=== PATIENT | female | born 1940 | race Caucasian/White ===

== ENCOUNTER 2016-03-23 09:34 | Outpatient (CLI) | payer MEDICARE | END 2016-03-23 09:35 | disposition home or self-care (01) | LOC: LAB.N 09:34 | PROVIDERS: ATTEND Internal Medicine Cardiovascular Disease | DX: Z95.2 Presence of prosthetic heart valve (principal); Z79.01 Long term (current) use of anticoagulants | CPT/HCPCS: 85610 ==

== ENCOUNTER 2016-04-18 10:02 | Outpatient (CLI) | payer MEDICARE | END 2016-04-18 10:03 | disposition home or self-care (01) | DX: Z95.2 Presence of prosthetic heart valve (principal); Z79.01 Long term (current) use of anticoagulants ==

== ENCOUNTER 2016-05-16 09:46 | Outpatient (CLI) | payer MEDICARE | END 2016-05-16 09:47 | disposition home or self-care (01) | DX: Z79.01 Long term (current) use of anticoagulants (principal); Z95.2 Presence of prosthetic heart valve ==

== ENCOUNTER 2016-07-06 10:47 | Outpatient (CLI) | payer MEDICARE | END 2016-07-06 10:48 | disposition home or self-care (01) | DX: Z95.2 Presence of prosthetic heart valve (principal); Z79.01 Long term (current) use of anticoagulants ==

== ENCOUNTER 2016-08-21 08:00 | Outpatient (CLI) | payer MEDICARE | END 2016-08-21 08:01 | disposition home or self-care (01) | LOC: LAB.N 08:00 | PROVIDERS: ATTEND Internal Medicine Cardiovascular Disease | DX: Z95.2 Presence of prosthetic heart valve (principal); Z79.01 Long term (current) use of anticoagulants | CPT/HCPCS: 85610 ==

== ENCOUNTER 2016-08-24 09:30 | Outpatient (CLI) | payer MEDICARE ==
[2016-08-24 13:14] LABS: CHOL/HDL RATIO 3.2 (<4.4); CHOLESTEROL 193 mg/dL; HDL CHOLESTEROL 61 mg/dL; LDL/HDL RATIO 1.9 (<4.4); TRIGLYCERIDES 76 mg/dL; VLDL CHOLESTEROL 15 mg/dL
== END 2016-08-24 09:31 | disposition home or self-care (01) ==
LOC: LAB.N 09:30
PROVIDERS: ATTEND Internal Medicine Cardiovascular Disease
DX: E78.4 Other hyperlipidemia (principal); I10 Essential (primary) hypertension; Z79.01 Long term (current) use of anticoagulants
CPT/HCPCS: 36415; 80061

== ENCOUNTER 2016-09-21 08:00 | Outpatient (CLI) | payer MEDICARE | END 2016-09-21 08:01 | disposition home or self-care (01) | LOC: LAB.N 08:00 | PROVIDERS: ATTEND Internal Medicine Cardiovascular Disease | DX: Z95.2 Presence of prosthetic heart valve (principal); Z79.01 Long term (current) use of anticoagulants | CPT/HCPCS: 85610 ==

== ENCOUNTER 2016-11-06 10:57 | Outpatient (CLI) | payer MEDICARE | END 2016-11-06 10:58 | disposition home or self-care (01) | LOC: LAB.N 10:57 | PROVIDERS: ATTEND Internal Medicine Cardiovascular Disease | DX: Z95.2 Presence of prosthetic heart valve (principal); Z79.01 Long term (current) use of anticoagulants | CPT/HCPCS: 85610 ==

== ENCOUNTER 2016-11-12 08:00 | Outpatient (CLI) | payer MEDICARE ==
[2016-11-12 14:08] LABS: CHOLESTEROL 199 mg/dL; HDL CHOLESTEROL 66 mg/dL; LDL/HDL RATIO 1.8 (<4.4); TRIGLYCERIDES 72 mg/dL; VLDL CHOLESTEROL 14 mg/dL
== END 2016-11-12 08:01 | disposition home or self-care (01) ==
LOC: LAB.N 08:00
PROVIDERS: ATTEND Internal Medicine Cardiovascular Disease
DX: I25.10 Atherosclerotic heart disease of native coronary artery without angina pectoris (principal); J90 Pleural effusion, not elsewhere classified; R06.02 Shortness of breath; I50.30 Unspecified diastolic (congestive) heart failure; Z95.2 Presence of prosthetic heart valve; J43.2 Centrilobular emphysema; Z79.01 Long term (current) use of anticoagulants
CPT/HCPCS: 36415; 80061

== ENCOUNTER 2016-11-26 09:45 | Outpatient (CLI) | payer MEDICARE | END 2016-11-26 09:46 | disposition home or self-care (01) | LOC: LAB.N 09:45 | PROVIDERS: ATTEND Ophthalmology | DX: Z79.01 Long term (current) use of anticoagulants (principal) | CPT/HCPCS: 85610 ==

== ENCOUNTER 2016-12-04 12:44 | Outpatient (CLI) | payer MEDICARE ==
[2016-12-04 12:59] LABS: CALCIUM 9.3 mg/dL (8.5-10.3); CREATININE 0.7 mg/dL (0.4-1.0)
== END 2016-12-04 12:45 | disposition home or self-care (01) ==
LOC: LAB.N 12:44
PROVIDERS: ATTEND Internal Medicine Cardiovascular Disease
DX: I50.30 Unspecified diastolic (congestive) heart failure (principal); Z95.2 Presence of prosthetic heart valve; J43.2 Centrilobular emphysema; R06.02 Shortness of breath
CPT/HCPCS: 36415; 80048

== ENCOUNTER 2016-12-10 08:00 | Outpatient (CLI) | payer MEDICARE | END 2016-12-10 08:01 | disposition home or self-care (01) | LOC: LAB.N 08:00 | PROVIDERS: ATTEND Internal Medicine Cardiovascular Disease | DX: Z95.2 Presence of prosthetic heart valve (principal); Z79.01 Long term (current) use of anticoagulants | CPT/HCPCS: 85610 ==

== ENCOUNTER 2016-12-27 14:49 | Outpatient (CLI) | payer MEDICARE ==
[2016-12-27 13:07] LABS: HGB - HEMOGLOBIN 12.7 g/dL (12.0-16.0); MEAN CORPUSCULAR HEMOGLOBIN 30.3 pg (27.0-31.0); MEAN CORPUSCULAR HGB CONC 34.3 g/dL (32.0-36.0); MEAN CORPUSCULAR VOLUME 88.6 fL (81.0-99.0); MEAN PLATELET VOLUME 8.9 fL (7.9-10.8); RED BLOOD COUNT 4.17 10^6/uL (4.20-5.40); RED CELL DISTRIBUTION WIDTH 13.2 % (12.0-15.0); WHITE BLOOD COUNT 5.6 x10^3/uL (4.8-10.8)
[2016-12-27 13:31] LABS: ALBUMIN/GLOBULIN RATIO 1.4 (1.0-2.2); BILIRUBIN,TOTAL 0.9 mg/dL (0.2-1.0); CALCIUM 8.6 mg/dL (8.5-10.3); CREATININE 0.7 mg/dL (0.4-1.0); POTASSIUM 3.7 mmol/L (3.5-5.0); TOTAL PROTEIN 6.9 g/dL (6.7-8.2)
== END 2016-12-27 14:50 | disposition home or self-care (01) ==
LOC: LAB.N 14:49
PROVIDERS: ATTEND Internal Medicine
DX: E03.9 Hypothyroidism, unspecified (principal); I10 Essential (primary) hypertension; C91.10 Chronic lymphocytic leukemia of B-cell type not having achieved remission; Z79.899 Other long term (current) drug therapy
CPT/HCPCS: 36415; 80053; 84443

== ENCOUNTER 2017-01-29 15:07 | Outpatient (CLI) | payer MEDICARE | END 2017-01-29 15:08 | disposition home or self-care (01) | LOC: LAB.N 15:07 | PROVIDERS: ATTEND Internal Medicine Cardiovascular Disease | DX: Z95.2 Presence of prosthetic heart valve (principal); Z79.01 Long term (current) use of anticoagulants | CPT/HCPCS: 85610 ==

== ENCOUNTER 2017-03-13 08:00 | Outpatient (CLI) | payer MEDICARE ==
[2017-03-13 12:23] LABS: HGB - HEMOGLOBIN 12.8 g/dL (12.0-16.0); MEAN CORPUSCULAR HEMOGLOBIN 30.8 pg (27.0-31.0); MEAN CORPUSCULAR HGB CONC 35.1 g/dL (32.0-36.0); MEAN CORPUSCULAR VOLUME 87.7 fL (81.0-99.0); MEAN PLATELET VOLUME 8.9 fL (7.9-10.8); RED BLOOD COUNT 4.15 10^6/uL (4.20-5.40); RED CELL DISTRIBUTION WIDTH 13.2 % (12.0-15.0); WHITE BLOOD COUNT 5.4 x10^3/uL (4.8-10.8)
[2017-03-13 12:49] LABS: HB2 TOTAL 13.6 g/dL; HEMOGLOBIN A1C 0.44 g/dL; HEMOGLOBIN A1C % 5.1 % (4.6-6.2)
[2017-03-13 12:52] LABS: ALBUMIN 4.1 g/dL (3.2-5.5); ALBUMIN/GLOBULIN RATIO 1.4 (1.0-2.2); ALKALINE PHOSPHATASE 78 IU/L (42-121); ALT ALANINE AMINOTRANSFERASE 42 IU/L (10-60); AST ASPARTATE AMINOTRANSFERASE 53 IU/L (10-42); BILIRUBIN,TOTAL 0.8 mg/dL (0.2-1.0); BUN - BLOOD UREA NITROGEN 18 mg/dL (6-20); CARBON DIOXIDE - CO2 30 mmol/L (21-32); CHLORIDE 102 mmol/L (101-111); CHOL/HDL RATIO 2.9 (<4.4); CHOLESTEROL 192 mg/dL; CREATININE 0.7 mg/dL (0.4-1.0); GFR - MDRD 82 (>89); GLUCOSE 90 mg/dL (70-100); HDL CHOLESTEROL 66 mg/dL; LDL CHOLESTEROL,CALCULATED 114 mg/dL; LDL/HDL RATIO 1.7 (<4.4); SODIUM 135 mmol/L (135-145); TOTAL PROTEIN 7.1 g/dL (6.7-8.2); VLDL CHOLESTEROL 12 mg/dL
== END 2017-03-13 08:01 | disposition home or self-care (01) ==
LOC: LAB.N 08:00
PROVIDERS: ATTEND Internal Medicine
DX: E78.4 Other hyperlipidemia (principal); E16.2 Hypoglycemia, unspecified; I10 Essential (primary) hypertension; Z95.2 Presence of prosthetic heart valve; Z79.01 Long term (current) use of anticoagulants; Z79.899 Other long term (current) drug therapy
CPT/HCPCS: 36415; 80053; 80061; 83036; 85610

== ENCOUNTER 2017-04-08 09:07 | Outpatient (CLI) | payer MEDICARE ==
--- NOTE | 2017-04-09 17:45 | Mammography Report ---
DATE OF SERVICE: 04/08/2017 DIGITAL SCREENING MAMMOGRAM: 04/08/2017 CLINICAL INDICATION: A 76-year-old nulliparous patient with personal history of left breast cancer, status post lumpectomy and radiation therapy, family history of breast cancer for screening. COMPARISON: 10/2015, 08/2014, 06/2012, 03/2011, 03/2010, 02/2009, 08/2007. TECHNIQUE: Routine CC and MLO projections as well as bilateral laterally exaggerated craniocaudal views were obtained of the breasts. FINDINGS: The breasts again demonstrate heterogeneously dense fibroglandular parenchyma bilaterally. Postoperative and posttreatment changes in the left breast are stable. Architectural distortion in the right outer breast is unchanged back to 2007. Coarse and punctate, typically benign calcifications are present. No suspicious masses, clustered microcalcifications, or regions of architectural distortion are identified. IMPRESSION: BENIGN FINDINGS. RECOMMENDATIONS: Routine annual screening unless otherwise clinically indicated. BIRADS category 2 benign findings breasts. STANDARD QUALIFYING STATEMENTS 1. This examination was reviewed with the aid of Computed-Aided Detection (CAD). 2. A negative or benign imaging report should not delay biopsy if clinically suspicious findings are present. Consider surgical consultation if warranted. More than 5% of cancers are not identified by imaging. 3. Dense breasts may obscure an underlying neoplasm. TD: 04/09/2017 17:45
== END 2017-04-08 09:08 | disposition home or self-care (01) ==
LOC: DI 09:07
PROVIDERS: ATTEND Internal Medicine
DX: Z12.31 Encounter for screening mammogram for malignant neoplasm of breast (principal); Z85.3 Personal history of malignant neoplasm of breast; Z80.3 Family history of malignant neoplasm of breast
CPT/HCPCS: 77067

== ENCOUNTER 2017-04-30 09:58 | Outpatient (CLI) | payer MEDICARE ==
[2017-04-30 13:41] LABS: CALCIUM 9.2 mg/dL (8.5-10.3); CREATININE 0.7 mg/dL (0.4-1.0)
== END 2017-04-30 09:59 | disposition home or self-care (01) ==
LOC: LAB.N 09:58
PROVIDERS: ATTEND Internal Medicine Cardiovascular Disease
DX: I50.30 Unspecified diastolic (congestive) heart failure (principal); Z95.2 Presence of prosthetic heart valve; Z79.01 Long term (current) use of anticoagulants
CPT/HCPCS: 36415; 80048; 85610

== ENCOUNTER 2017-05-22 09:38 | Outpatient (CLI) | payer MEDICARE | END 2017-05-22 09:39 | disposition home or self-care (01) | LOC: LAB.N 09:38 | PROVIDERS: ATTEND Internal Medicine Cardiovascular Disease | DX: Z95.2 Presence of prosthetic heart valve (principal); Z79.01 Long term (current) use of anticoagulants | CPT/HCPCS: 85610 ==

== ENCOUNTER 2017-06-14 08:00 | Outpatient (CLI) | payer MEDICARE ==
[2017-06-14 19:08] LABS: INR 2.2 (0.8-1.2); PT - PROTHROMBIN TIME 24.5 secs (9.9-12.6)
== END 2017-06-14 08:01 | disposition home or self-care (01) ==
LOC: LAB.N 08:00
PROVIDERS: ATTEND Internal Medicine Cardiovascular Disease
DX: I34.2 Nonrheumatic mitral (valve) stenosis (principal); I34.0 Nonrheumatic mitral (valve) insufficiency; Z95.2 Presence of prosthetic heart valve
CPT/HCPCS: 36415; 85610

== ENCOUNTER 2017-06-19 08:00 | Outpatient (CLI) | payer MEDICARE | END 2017-06-19 08:01 | disposition home or self-care (01) | LOC: LAB.N 08:00 | PROVIDERS: ATTEND Internal Medicine Cardiovascular Disease | DX: Z95.2 Presence of prosthetic heart valve (principal) | CPT/HCPCS: 85610 ==

== ENCOUNTER 2017-07-11 10:02 | Outpatient (CLI) | payer MEDICARE | END 2017-07-11 10:03 | disposition home or self-care (01) | LOC: LAB.N 10:02 | PROVIDERS: ATTEND Internal Medicine Cardiovascular Disease | DX: Z95.2 Presence of prosthetic heart valve (principal) | CPT/HCPCS: 85610 ==

== ENCOUNTER 2017-08-23 08:00 | Outpatient (CLI) | END 2017-08-23 08:01 | disposition home or self-care (01) ==

== ENCOUNTER 2017-10-14 09:26 | Outpatient (CLI) | payer MEDICARE | END 2017-10-14 09:27 | disposition home or self-care (01) | LOC: LAB.N 09:26 | PROVIDERS: ATTEND Internal Medicine Cardiovascular Disease | DX: Z95.2 Presence of prosthetic heart valve (principal) | CPT/HCPCS: 85610 ==

== ENCOUNTER 2017-11-14 08:00 | Outpatient (CLI) | payer MEDICARE | END 2017-11-14 23:59 | LOC: LAB.N 08:00 | PROVIDERS: ATTEND Internal Medicine Cardiovascular Disease | DX: Z95.2 Presence of prosthetic heart valve (principal) | CPT/HCPCS: 85610 ==

== ENCOUNTER 2017-11-25 09:32 | Outpatient (CLI) | payer MEDICARE ==
[2017-11-25 14:48] LABS: CALCIUM 9.3 mg/dL (8.5-10.3); CREATININE 0.7 mg/dL (0.4-1.0); MAGNESIUM 2.1 mg/dL (1.7-2.8)
== END 2017-11-25 09:33 | disposition home or self-care (01) ==
LOC: LAB.N 09:32
PROVIDERS: ATTEND Internal Medicine
DX: E78.4 Other hyperlipidemia (principal); E16.2 Hypoglycemia, unspecified; E03.9 Hypothyroidism, unspecified; Z79.899 Other long term (current) drug therapy
CPT/HCPCS: 36415; 80048; 83735

== ENCOUNTER 2017-12-10 10:12 | Outpatient (CLI) | payer MEDICARE | END 2017-12-10 10:13 | disposition home or self-care (01) | LOC: LAB.N 10:12 | PROVIDERS: ATTEND Internal Medicine Cardiovascular Disease | DX: Z95.2 Presence of prosthetic heart valve (principal) | CPT/HCPCS: 85610 ==

== ENCOUNTER 2017-12-23 12:17 | Outpatient (CLI) | payer MEDICARE ==
[2017-12-23 15:05] LABS: ALBUMIN 4.2 g/dL (3.2-5.5); ALBUMIN/GLOBULIN RATIO 1.4 (1.0-2.2); ALKALINE PHOSPHATASE 70 IU/L (42-121); ALT ALANINE AMINOTRANSFERASE 26 IU/L (10-60); AST ASPARTATE AMINOTRANSFERASE 33 IU/L (10-42); BUN - BLOOD UREA NITROGEN 20 mg/dL (6-20); CALCIUM 9.3 mg/dL (8.5-10.3); CARBON DIOXIDE - CO2 32 mmol/L (21-32); CHLORIDE 96 mmol/L (101-111); CHOL/HDL RATIO 2.7 (<4.4); CHOLESTEROL 196 mg/dL; CREATININE 0.7 mg/dL (0.4-1.0); GFR - MDRD 81 (>89); GLUCOSE 89 mg/dL (70-100); HDL CHOLESTEROL 72 mg/dL; LDL CHOLESTEROL,CALCULATED 112 mg/dL; LDL/HDL RATIO 1.6 (<4.4); SODIUM 138 mmol/L (135-145); TOTAL PROTEIN 7.2 g/dL (6.7-8.2); VLDL CHOLESTEROL 12 mg/dL
== END 2017-12-23 12:18 | disposition home or self-care (01) ==
LOC: LAB.N 12:17
PROVIDERS: ATTEND Internal Medicine
DX: I10 Essential (primary) hypertension (principal); E78.5 Hyperlipidemia, unspecified
CPT/HCPCS: 36415; 80053; 80061; 83721

== ENCOUNTER 2018-02-07 08:00 | Outpatient (CLI) | payer MEDICARE | END 2018-02-07 23:59 | LOC: LAB.N 08:00 | PROVIDERS: ATTEND Internal Medicine Cardiovascular Disease | DX: Z95.2 Presence of prosthetic heart valve (principal) | CPT/HCPCS: 85610 ==

== ENCOUNTER 2018-02-10 10:28 | Outpatient (CLI) | payer MEDICARE ==
[2018-02-10 13:41] LABS: ALBUMIN 4.1 g/dL (3.2-5.5); ALBUMIN/GLOBULIN RATIO 1.4 (1.0-2.2); CALCIUM 9.2 mg/dL (8.5-10.3); CREATININE 0.8 mg/dL (0.4-1.0); TOTAL PROTEIN 7.1 g/dL (6.7-8.2)
== END 2018-02-10 23:59 | disposition home or self-care (01) ==
LOC: LAB.N 10:28
PROVIDERS: ATTEND Internal Medicine Cardiovascular Disease
DX: I27.81 Cor pulmonale (chronic) (principal)
CPT/HCPCS: 36415; 80053

== ENCOUNTER 2018-03-03 10:20 | Outpatient (CLI) | payer MEDICARE ==
[2018-03-03 13:43] LABS: CREATININE 0.9 mg/dL (0.4-1.0)
== END 2018-03-03 10:21 | disposition home or self-care (01) ==
LOC: LAB.N 10:20
PROVIDERS: ATTEND Internal Medicine Cardiovascular Disease
DX: I50.32 Chronic diastolic (congestive) heart failure (principal)
CPT/HCPCS: 36415; 80048

== ENCOUNTER 2018-03-17 09:48 | Outpatient (CLI) | payer MEDICARE | END 2018-03-17 23:59 | disposition home or self-care (01) | LOC: LAB.N 09:48 | PROVIDERS: ATTEND Internal Medicine Cardiovascular Disease | DX: Z95.2 Presence of prosthetic heart valve (principal) | CPT/HCPCS: 85610 ==

== ENCOUNTER 2018-04-02 09:38 | Outpatient (CLI) | payer MEDICARE ==
[2018-04-02 13:04] LABS: BASOPHILS # (AUTO) 0.1 10^3/uL (0.0-0.1); BASOPHILS % (AUTO) 1.4 %; EOSINOPHILS # (AUTO) 0.1 10^3/uL (0.0-0.7); EOSINOPHILS % (AUTO) 2.3 %; HGB - HEMOGLOBIN 13.1 g/dL (12.0-16.0); LYMPHOCYTES # (AUTO) 0.7 10^3/uL (1.5-3.5); LYMPHOCYTES % (AUTO) 11.1 %; MEAN CORPUSCULAR HEMOGLOBIN 31.6 pg (27.0-31.0); MEAN CORPUSCULAR VOLUME 90.4 fL (81.0-99.0); MEAN PLATELET VOLUME 8.9 fL (7.9-10.8); MONOCYTES # (AUTO) 0.6 10^3/uL (0.0-1.0); MONOCYTES % (AUTO) 8.9 %; NEUTROPHILS # (AUTO) 4.7 10^3/uL (1.5-6.6); NEUTROPHILS % (AUTO) 76.3 %; PLT - PLATELET COUNT 182 10^3/uL (130-450); RED BLOOD COUNT 4.13 10^6/uL (4.20-5.40); RED CELL DISTRIBUTION WIDTH 13.4 % (12.0-15.0); WHITE BLOOD COUNT 6.2 x10^3/uL (4.8-10.8)
[2018-04-02 13:29] LABS: THYROID STIMULATING HORMONE 1.7 uIU/mL (0.34-5.60)
[2018-04-02 13:31] LABS: FREE T4 (FREE THYROXINE) 1.53 ng/dL (0.58-1.64)
[2018-04-02 13:34] LABS: CALCIUM 8.8 mg/dL (8.5-10.3); CREATININE 0.7 mg/dL (0.4-1.0); MAGNESIUM 2.5 mg/dL (1.7-2.8)
[2018-04-02 13:57] LABS: ALBUMIN 3.7 g/dL (3.2-5.5); ALKALINE PHOSPHATASE 75 IU/L (42-121); ALT ALANINE AMINOTRANSFERASE 26 IU/L (10-60); AST ASPARTATE AMINOTRANSFERASE 38 IU/L (10-42); BILIRUBIN,DIRECT 0.2 mg/dL (0.1-0.5); BILIRUBIN,TOTAL 0.9 mg/dL (0.2-1.0); CHOL/HDL RATIO 2.6 (<4.4); CHOLESTEROL 172 mg/dL; HDL CHOLESTEROL 65 mg/dL; LDL CHOLESTEROL,CALCULATED 97 mg/dL; LDL/HDL RATIO 1.5 (<4.4); TOTAL PROTEIN 6.7 g/dL (6.7-8.2); VLDL CHOLESTEROL 10 mg/dL
== END 2018-04-02 23:59 | disposition home or self-care (01) ==
LOC: LAB.N 09:38
PROVIDERS: ATTEND Internal Medicine Cardiovascular Disease
DX: R06.02 Shortness of breath (principal); I27.81 Cor pulmonale (chronic); I10 Essential (primary) hypertension; E78.5 Hyperlipidemia, unspecified; R31.29 Other microscopic hematuria; E03.9 Hypothyroidism, unspecified
CPT/HCPCS: 36415; 80048; 80061; 80076; 81001; 83721; 83735; 83880; 84439; 84443; 85025

== ENCOUNTER 2018-04-11 10:11 | Outpatient (CLI) | payer MEDICARE ==
--- NOTE | 2018-04-14 09:46 | Mammography Report ---
Reason: SCREENING MAMMO Procedure Date: 04/11/2018 Accession Number: [id number] / [id number] Procedure: MGN - Screening Mammo Dig Bilat CPT Code: FULL RESULT: EXAM: Screening Mammo Dig Bilat DATE: 04/11/2018 10:38 AM CLINICAL HISTORY: Nulliparous patient with history of left lumpectomy and radiation therapy and benign right breast biopsy TECHNIQUE: Bilateral CC and MLO views were obtained. COMPARISON: 04/08/2017, 10/10/2015, 08/10/2014 and 06/11/2012 FINDINGS: The breast tissue is heterogeneously dense. Stable posttreatment changes in the left breast. In the right breast there is a questionable nodular density and architectural distortion in the upper outer quadrant which in part may be secondary to the prior benign biopsy. However suggest additional spot compression views of the upper outer right breast and a right true lateral projection. Ultrasound if needed. IMPRESSION: Benign findings left breast. Needs additional evaluation right breast BI-RADS 0. RECOMMENDATION: Additional evaluation right breast.. BIRADS CATEGORY 0: Needs additional evaluation. STANDARD QUALIFYING STATEMENTS: 1. This examination was reviewed with the aid of Computer-Aided Detection (CAD). 2. A negative or benign imaging report should not delay biopsy if clinically suspicious findings are present. Consider surgical consultation if warrented. More than 5% of cancers are not identified by imaging. 3. Dense breasts may obscure an underlying neoplasm.
== END 2018-04-11 10:12 | disposition home or self-care (01) ==
LOC: DI.N 10:11
PROVIDERS: ATTEND Internal Medicine
DX: Z12.31 Encounter for screening mammogram for malignant neoplasm of breast (principal); R92.8 Other abnormal and inconclusive findings on diagnostic imaging of breast
CPT/HCPCS: 77067

== ENCOUNTER 2018-04-28 08:00 | Outpatient (CLI) | payer MEDICARE | END 2018-04-28 08:01 | disposition home or self-care (01) | LOC: LAB.N 08:00 | PROVIDERS: ATTEND Internal Medicine Cardiovascular Disease | DX: Z95.2 Presence of prosthetic heart valve (principal) | CPT/HCPCS: 85610 ==

== ENCOUNTER 2018-05-01 09:54 | Outpatient (CLI) | payer MEDICARE | END 2018-05-01 23:59 | disposition home or self-care (01) | LOC: LAB.N 09:54 | PROVIDERS: ATTEND Internal Medicine Cardiovascular Disease | DX: Z95.2 Presence of prosthetic heart valve (principal) | CPT/HCPCS: 85610 ==

== ENCOUNTER 2018-05-16 09:43 | Outpatient (CLI) | payer MEDICARE ==
--- NOTE | 2018-05-16 10:58 | Mammography Report ---
Reason: ABN MAMMO - RT SPEC VIEWS Procedure Date: 05/16/2018 Accession Number: [id number] / [id number] Procedure: LUCAS - Diag Special Views Dig RT CPT Code: FULL RESULT: EXAM: Diag Special Views Dig RT DATE: 05/16/2018 10:44 AM CLINICAL HISTORY: Recall from recent screening exam for possible asymmetry upper outer right breast. Personal history of treated left breast cancer status post lumpectomy. TECHNIQUE: Right spot compressed CC MLO. Right 90 degree 2-D/3-D COMPARISON: 04/11/2018 through 06/11/2012. FINDINGS: The breast demonstrates heterogeneously dense fibroglandular parenchyma . Right breast: There are stable operative changes status post benign excisional biopsy from the upper outer breast. Area of concern recalled from recent screening exam in the adjacent parenchyma does not persist on additional views, consistent with summation of normal tissues. Area has returned to its baseline appearance compared to studies dating back to 2012. There are no suspicious masses, calcifications or areas of nonoperative distortion. IMPRESSION: Benign findings RECOMMENDATION: Routine annual screening unless otherwise clinically indicated. BI-RADS CATEGORY 2: Benign findings STANDARD QUALIFYING STATEMENTS: 1. This examination was not reviewed with the aid of Computer-Aided Detection (CAD). 2. A negative or benign imaging report should not preclude biopsy if clinically suspicious findings are present. 3. Dense breasts may obscure an underlying neoplasm. 4. This examination was reviewed with the aid of 3D breast imaging (tomosynthesis).
== END 2018-05-16 09:44 | disposition home or self-care (01) ==
LOC: DI 09:43
PROVIDERS: ATTEND Internal Medicine
DX: R92.8 Other abnormal and inconclusive findings on diagnostic imaging of breast (principal)

== ENCOUNTER 2018-05-21 08:00 | Outpatient (CLI) | payer MEDICARE ==
[2018-05-21 13:05] LABS: CALCIUM 9.4 mg/dL (8.5-10.3); CREATININE 0.9 mg/dL (0.4-1.0)
== END 2018-05-21 23:59 | disposition home or self-care (01) ==
LOC: LAB.N 08:00
PROVIDERS: ATTEND Internal Medicine Cardiovascular Disease
DX: I27.81 Cor pulmonale (chronic) (principal)
CPT/HCPCS: 36415; 80048

== ENCOUNTER 2018-06-19 08:00 | Outpatient (CLI) | payer MEDICARE | END 2018-06-19 23:59 | disposition home or self-care (01) | LOC: LAB.N 08:00 | PROVIDERS: ATTEND Internal Medicine Cardiovascular Disease | DX: Z95.2 Presence of prosthetic heart valve (principal) | CPT/HCPCS: 85610 ==

== ENCOUNTER 2018-07-14 08:00 | Outpatient (CLI) | payer MEDICARE ==
[2018-07-14 18:46] LABS: CALCIUM 8.9 mg/dL (8.5-10.3); CREATININE 0.8 mg/dL (0.4-1.0)
[2018-07-14 19:31] LABS: BASOPHILS # (AUTO) 0.1 10^3/uL (0.0-0.1); EOSINOPHILS % (AUTO) 0.7 %; HGB - HEMOGLOBIN 12.1 g/dL (12.0-16.0); LYMPHOCYTES # (AUTO) 0.8 10^3/uL (1.5-3.5); LYMPHOCYTES % (AUTO) 14.2 %; MEAN CORPUSCULAR HEMOGLOBIN 28.4 pg (27.0-31.0); MEAN CORPUSCULAR HGB CONC 32.4 g/dL (32.0-36.0); MEAN CORPUSCULAR VOLUME 87.6 fL (81.0-99.0); MEAN PLATELET VOLUME 8.8 fL (7.9-10.8); MONOCYTES # (AUTO) 0.7 10^3/uL (0.0-1.0); MONOCYTES % (AUTO) 12.7 %; NEUTROPHILS # (AUTO) 4.1 10^3/uL (1.5-6.6); NEUTROPHILS % (AUTO) 71.4 %; PLT - PLATELET COUNT 190 10^3/uL (130-450); RED BLOOD COUNT 4.24 10^6/uL (4.20-5.40); RED CELL DISTRIBUTION WIDTH 13.7 % (12.0-15.0); WHITE BLOOD COUNT 5.8 x10^3/uL (4.8-10.8)
== END 2018-07-14 23:59 | disposition home or self-care (01) ==
LOC: LAB.N 08:00
PROVIDERS: ATTEND Internal Medicine
DX: E11.9 Type 2 diabetes mellitus without complications (principal); D50.9 Iron deficiency anemia, unspecified; N28.9 Disorder of kidney and ureter, unspecified; I10 Essential (primary) hypertension; Z79.899 Other long term (current) drug therapy
CPT/HCPCS: 36415; 80048; 85025

== ENCOUNTER 2018-07-24 09:55 | Outpatient (CLI) | payer MEDICARE ==
[2018-07-24 13:44] LABS: BASOPHILS # (AUTO) 0.1 10^3/uL (0.0-0.1); BASOPHILS % (AUTO) 1.8 %; EOSINOPHILS % (AUTO) 0.4 %; HGB - HEMOGLOBIN 11.8 g/dL (12.0-16.0); LYMPHOCYTES # (AUTO) 0.5 10^3/uL (1.5-3.5); LYMPHOCYTES % (AUTO) 10.8 %; MEAN CORPUSCULAR HEMOGLOBIN 28.3 pg (27.0-31.0); MEAN CORPUSCULAR HGB CONC 33.3 g/dL (32.0-36.0); MEAN CORPUSCULAR VOLUME 84.9 fL (81.0-99.0); MEAN PLATELET VOLUME 8.9 fL (7.9-10.8); MONOCYTES # (AUTO) 0.8 10^3/uL (0.0-1.0); MONOCYTES % (AUTO) 17.1 %; NEUTROPHILS # (AUTO) 3.4 10^3/uL (1.5-6.6); NEUTROPHILS % (AUTO) 69.9 %; PLT - PLATELET COUNT 169 10^3/uL (130-450); RED BLOOD COUNT 4.17 10^6/uL (4.20-5.40); WHITE BLOOD COUNT 4.8 x10^3/uL (4.8-10.8)
[2018-07-24 13:57] LABS: CALCIUM 8.6 mg/dL (8.5-10.3); CREATININE 0.8 mg/dL (0.4-1.0); MAGNESIUM 2.2 mg/dL (1.7-2.8)
== END 2018-07-24 23:59 | disposition home or self-care (01) ==
LOC: LAB.N 09:55
PROVIDERS: ATTEND Internal Medicine Cardiovascular Disease
DX: I35.0 Nonrheumatic aortic (valve) stenosis (principal); J44.9 Chronic obstructive pulmonary disease, unspecified; C91.10 Chronic lymphocytic leukemia of B-cell type not having achieved remission; E78.5 Hyperlipidemia, unspecified; E03.9 Hypothyroidism, unspecified; Z79.899 Other long term (current) drug therapy; Z95.2 Presence of prosthetic heart valve
CPT/HCPCS: 36415; 80048; 83735; 84443; 85025; 85610

== ENCOUNTER 2018-08-01 08:00 | Outpatient (CLI) | payer MEDICARE ==
[2018-08-01 12:49] LABS: ABSOLUTE RETICS # AUTO 0.064 10^6/uL (0.020-0.110); BASOPHILS # (AUTO) 0.1 10^3/uL (0.0-0.1); BASOPHILS % (AUTO) 1.3 %; EOSINOPHILS # (AUTO) 0.1 10^3/uL (0.0-0.7); EOSINOPHILS % (AUTO) 2.4 %; HGB - HEMOGLOBIN 11.7 g/dL (12.0-16.0); LYMPHOCYTES # (AUTO) 0.7 10^3/uL (1.5-3.5); LYMPHOCYTES % (AUTO) 12.8 %; MEAN CORPUSCULAR HEMOGLOBIN 28.4 pg (27.0-31.0); MEAN CORPUSCULAR HGB CONC 33.3 g/dL (32.0-36.0); MEAN CORPUSCULAR VOLUME 85.1 fL (81.0-99.0); MEAN PLATELET VOLUME 8.4 fL (7.9-10.8); MONOCYTES # (AUTO) 0.7 10^3/uL (0.0-1.0); MONOCYTES % (AUTO) 11.5 %; NEUTROPHILS # (AUTO) 4.2 10^3/uL (1.5-6.6); PLT - PLATELET COUNT 208 10^3/uL (130-450); RED BLOOD COUNT 4.11 10^6/uL (4.20-5.40); RED CELL DISTRIBUTION WIDTH 14.5 % (12.0-15.0); WHITE BLOOD COUNT 5.8 x10^3/uL (4.8-10.8)
[2018-08-01 13:02] LABS: FERRITIN 14.1 ng/mL (11.0-306.8)
[2018-08-01 13:41] LABS: CALCIUM 9.1 mg/dL (8.5-10.3)
[2018-08-01 13:43] LABS: FOLATE > 49.60 ng/mL (5.90 - >24.8)
== END 2018-08-01 23:59 | disposition home or self-care (01) ==
LOC: LAB.N 08:00
PROVIDERS: ATTEND Internal Medicine
DX: D50.9 Iron deficiency anemia, unspecified (principal); C91.10 Chronic lymphocytic leukemia of B-cell type not having achieved remission; C18.9 Malignant neoplasm of colon, unspecified; K30 Functional dyspepsia; I38 Endocarditis, valve unspecified
CPT/HCPCS: 36415; 80048; 82607; 82728; 82746; 83540; 84466; 85025; 85044

== ENCOUNTER 2018-08-22 08:00 | Outpatient (CLI) | payer MEDICARE | END 2018-08-22 23:59 | disposition home or self-care (01) | LOC: LAB.N 08:00 | PROVIDERS: ATTEND Internal Medicine Cardiovascular Disease | DX: Z95.2 Presence of prosthetic heart valve (principal) | CPT/HCPCS: 85610 ==

== ENCOUNTER 2018-08-29 14:27 | Outpatient (CLI) | payer MEDICARE ==
[2018-08-29 13:03] LABS: CALCIUM 8.7 mg/dL (8.5-10.3); CREATININE 1.1 mg/dL (0.4-1.0)
== END 2018-08-29 23:59 | disposition home or self-care (01) ==
LOC: LAB.N 14:27
PROVIDERS: ATTEND Internal Medicine Cardiovascular Disease
DX: E87.1 Hypo-osmolality and hyponatremia (principal)
CPT/HCPCS: 36415; 80048; 83930

== ENCOUNTER 2018-09-26 08:00 | Outpatient (CLI) | payer MEDICARE ==
[2018-09-26 17:37] LABS: CHOL/HDL RATIO 2.6 (<4.4); CHOLESTEROL 143 mg/dL; HDL CHOLESTEROL 54 mg/dL; LDL CHOLESTEROL,CALCULATED 77 mg/dL; LDL/HDL RATIO 1.4 (<4.4); VLDL CHOLESTEROL 12 mg/dL
== END 2018-09-26 23:59 | disposition home or self-care (01) ==
LOC: LAB.N 08:00
PROVIDERS: ATTEND Internal Medicine Cardiovascular Disease
DX: R06.02 Shortness of breath (principal); I34.2 Nonrheumatic mitral (valve) stenosis
CPT/HCPCS: 36415; 80061; 83721; 85610

== ENCOUNTER 2018-10-01 08:00 | Outpatient (CLI) | payer MEDICARE | END 2018-10-01 08:01 | disposition home or self-care (01) | LOC: LAB.N 08:00 | PROVIDERS: ATTEND Internal Medicine Cardiovascular Disease | DX: Z95.2 Presence of prosthetic heart valve (principal) | CPT/HCPCS: 85610 ==

== ENCOUNTER 2018-10-14 11:30 | Outpatient (CLI) | payer MEDICARE | END 2018-10-14 11:31 | disposition home or self-care (01) | LOC: LAB.N 11:30 | PROVIDERS: ATTEND Internal Medicine Cardiovascular Disease | DX: Z95.2 Presence of prosthetic heart valve (principal) | CPT/HCPCS: 85610 ==

== ENCOUNTER 2018-10-28 10:13 | Outpatient (CLI) | payer MEDICARE | END 2018-10-28 23:59 | disposition home or self-care (01) | LOC: LAB.N 10:13 | PROVIDERS: ATTEND Internal Medicine Cardiovascular Disease | DX: Z95.2 Presence of prosthetic heart valve (principal) | CPT/HCPCS: 85610 ==

== ENCOUNTER 2018-12-05 08:00 | Outpatient (CLI) | payer MEDICARE | END 2018-12-05 23:59 | disposition home or self-care (01) | LOC: LAB.N 08:00 | PROVIDERS: ATTEND Internal Medicine Cardiovascular Disease | DX: Z95.2 Presence of prosthetic heart valve (principal) | CPT/HCPCS: 85610 ==

== ENCOUNTER 2019-02-02 10:23 | Outpatient (CLI) | payer MEDICARE | END 2019-02-02 23:59 | disposition home or self-care (01) | LOC: LAB.N 10:23 | PROVIDERS: ATTEND Internal Medicine Cardiovascular Disease | DX: Z95.2 Presence of prosthetic heart valve (principal) | CPT/HCPCS: 85610 ==

== ENCOUNTER 2019-02-17 10:56 | Outpatient (CLI) | payer MEDICARE | END 2019-02-17 23:59 | disposition home or self-care (01) | LOC: LAB.N 10:56 | PROVIDERS: ATTEND Internal Medicine Cardiovascular Disease | DX: Z95.2 Presence of prosthetic heart valve (principal) | CPT/HCPCS: 85610 ==

== ENCOUNTER 2019-03-24 09:59 | Outpatient (CLI) | payer MEDICARE ==
[2019-03-24 11:47] LABS: BASOPHILS % (AUTO) 0.9 %; EOSINOPHILS % (AUTO) 0.9 %; HGB - HEMOGLOBIN 11.7 g/dL (12.0-16.0); LYMPHOCYTES # (AUTO) 0.6 10^3/uL (1.5-3.5); LYMPHOCYTES % (AUTO) 13.4 %; MEAN CORPUSCULAR HEMOGLOBIN 25.8 pg (27.0-31.0); MEAN CORPUSCULAR HGB CONC 30.8 g/dL (32.0-36.0); MEAN CORPUSCULAR VOLUME 83.7 fL (81.0-99.0); MEAN PLATELET VOLUME 10.7 fL (7.9-10.8); MONOCYTES # (AUTO) 0.8 10^3/uL (0.0-1.0); MONOCYTES % (AUTO) 17.5 %; NEUTROPHILS # (AUTO) 3.1 10^3/uL (1.5-6.6); NEUTROPHILS % (AUTO) 66.9 %; PLT - PLATELET COUNT 172 10^3/uL (130-450); RED BLOOD COUNT 4.54 10^6/uL (4.20-5.40); RED CELL DISTRIBUTION WIDTH 18.6 % (12.0-15.0); WHITE BLOOD COUNT 4.6 x10^3/uL (4.8-10.8)
[2019-03-24 11:59] LABS: CALCIUM 8.6 mg/dL (8.5-10.3); CREATININE 1.1 mg/dL (0.4-1.0)
== END 2019-03-24 23:59 | disposition home or self-care (01) ==
LOC: LAB.N 09:59
PROVIDERS: ATTEND Internal Medicine Cardiovascular Disease
DX: Z95.2 Presence of prosthetic heart valve (principal); J90 Pleural effusion, not elsewhere classified; G47.34 Idiopathic sleep related nonobstructive alveolar hypoventilation; J43.2 Centrilobular emphysema; I27.81 Cor pulmonale (chronic); R05 Cough; R06.09 Other forms of dyspnea
CPT/HCPCS: 36415; 80048; 85025; 85610

== ENCOUNTER 2019-03-27 09:48 | Outpatient (CLI) | payer MEDICARE | END 2019-03-27 23:59 | disposition home or self-care (01) | LOC: LAB.N 09:48 | PROVIDERS: ATTEND Internal Medicine Cardiovascular Disease | DX: Z95.2 Presence of prosthetic heart valve (principal) | CPT/HCPCS: 85610 ==

== ENCOUNTER 2019-03-30 09:28 | Outpatient (CLI) | payer MEDICARE | END 2019-03-30 23:59 | disposition home or self-care (01) | LOC: LAB.N 09:28 | PROVIDERS: ATTEND Internal Medicine Cardiovascular Disease | DX: Z95.2 Presence of prosthetic heart valve (principal) | CPT/HCPCS: 85610 ==

== ENCOUNTER 2019-04-10 08:00 | Outpatient (CLI) | payer MEDICARE | END 2019-04-10 23:59 | disposition home or self-care (01) | LOC: LAB.N 08:00 | PROVIDERS: ATTEND Internal Medicine Cardiovascular Disease | DX: Z95.2 Presence of prosthetic heart valve (principal) | CPT/HCPCS: 85610 ==

== ENCOUNTER 2019-04-13 08:00 | Outpatient (CLI) | payer MEDICARE ==
[2019-04-13 11:45] LABS: BASOPHILS # (AUTO) 0.1 10^3/uL (0.0-0.1); BASOPHILS % (AUTO) 0.7 %; EOSINOPHILS # (AUTO) 0.1 10^3/uL (0.0-0.7); EOSINOPHILS % (AUTO) 0.8 %; LYMPHOCYTES # (AUTO) 0.6 10^3/uL (1.5-3.5); LYMPHOCYTES % (AUTO) 8.4 %; MEAN CORPUSCULAR HGB CONC 30.9 g/dL (32.0-36.0); MEAN PLATELET VOLUME 10.2 fL (7.9-10.8); MONOCYTES # (AUTO) 1.1 10^3/uL (0.0-1.0); MONOCYTES % (AUTO) 14.3 %; NEUTROPHILS # (AUTO) 5.8 10^3/uL (1.5-6.6); NEUTROPHILS % (AUTO) 75.3 %; PLT - PLATELET COUNT 324 10^3/uL (130-450); RED BLOOD COUNT 4.62 10^6/uL (4.20-5.40); RED CELL DISTRIBUTION WIDTH 18.7 % (12.0-15.0); WHITE BLOOD COUNT 7.6 x10^3/uL (4.8-10.8)
[2019-04-13 12:34] LABS: ALBUMIN 3.5 g/dL (3.2-5.5); BILIRUBIN,TOTAL 1.3 mg/dL (0.2-1.0); CALCIUM 9.3 mg/dL (8.5-10.3); CREATININE 1.3 mg/dL (0.4-1.0); TOTAL PROTEIN 7.1 g/dL (6.7-8.2)
== END 2019-04-13 23:59 | disposition home or self-care (01) ==
LOC: LAB.N 08:00
PROVIDERS: ATTEND Internal Medicine
DX: E78.5 Hyperlipidemia, unspecified (principal); D50.9 Iron deficiency anemia, unspecified
CPT/HCPCS: 36415; 80053; 85025; 85610; 85651

== ENCOUNTER 2019-04-13 10:45 | Outpatient (CLI) | payer MEDICARE ==
--- NOTE | 2019-04-14 10:30 | XRAY Report ---
Reason: M54.5 Procedure Date: 04/13/2019 Accession Number: [id number] / [id number] Procedure: XRN - Lumbar Spine 2 View CPT Code: Final Report FULL RESULT: EXAM: LUMBOSACRAL SPINE RADIOGRAPHY EXAM DATE: 04/13/2019 11:06 AM. CLINICAL HISTORY: M 54.5. COMPARISONS: None. TECHNIQUE: 3 views. FINDINGS: Alignment: A biphasic scoliosis is convex right at T10-T11 measuring 17 degrees and convex left at L3-L4 measuring 25 degrees. No spondylolisthesis. Mild left lateral subluxation of L3 on L4 measures 5 mm. Bones: Five [id number] lumbar vertebral bodies are present. No fractures or bone lesions. Disks: Mild to moderate disk space loss and degenerative changes present at the L1-L5 levels. Facets: No degenerative changes. Sacroiliac Joints: Unremarkable. Soft Tissues: Normal. The visualized bowel gas pattern is normal. IMPRESSION: 1. Moderate biphasic scoliosis. 2. Mild to moderate degenerative disk disease L1-L5. 3. No fracture or listhesis. RADIA
== END 2019-04-13 10:46 | disposition home or self-care (01) ==
LOC: DI.N 10:45
PROVIDERS: ATTEND Internal Medicine
DX: M51.37 Other intervertebral disc degeneration, lumbosacral region (principal); M41.9 Scoliosis, unspecified; E78.5 Hyperlipidemia, unspecified; D50.9 Iron deficiency anemia, unspecified
CPT/HCPCS: 36415; 72100; 80053; 85025; 85651

== ENCOUNTER 2019-04-21 10:23 | Outpatient (CLI) | payer MEDICARE | END 2019-04-21 23:59 | disposition home or self-care (01) | LOC: LAB.N 10:23 | PROVIDERS: ATTEND Internal Medicine Cardiovascular Disease | DX: Z95.2 Presence of prosthetic heart valve (principal) | CPT/HCPCS: 85610 ==

== ENCOUNTER 2019-04-21 12:28 | Inpatient (IN) | payer MEDICARE ==
[2019-04-21] MEDS ORDERED: FUROSEMIDE 40 MG/4 ML VIAL IVP STA (14:05)
--- NOTE | 2019-04-21 14:07 | ED Physician Documentation ---
PD HPI DYSPNEA - Stated complaint Stated Complaint: SOA,SHAKES,SWELLING - Chief complaint Chief Complaint: Resp - History obtained from History obtained from: Patient, Family - History of Present Illness Timing - onset: How many years ago (2) Timing - onset during: Light activity Timing - duration: Years (2) Timing - details: Gradual onset, Still present Inciting event(s): Other (has right pleural effusion) Improved by: Sitting up Worsened by: Exertion, Laying flat Associated symptoms: Bilateral edema. No: Fever, Cough, Hemoptysis, Wheezing, Chest pain / discomfort, Palpitations, Diaphoresis Similar symptoms before: Diagnosis (CHF and pleural effusion) Recently seen: Other - Additional information Additional information: 78-year-old female with history of aortic valve replacement has a history of a pleural effusion on the right side. She had this tapped about 3 weeks ago. She states she got about a cup and a half of bloody fluid and this seemed to help with her breathing. She got negative cytology and no evidence of infection. She has become more short of breath and her legs are now swollen and despite taking her torsemide and having results with that this hernández s progressed. She was asked by her primary care doctor to come to the emergency department for further evaluation and treatment with the thought she may need to be hospitalized for diuresis for a day or 2. Review of Systems Constitutional: denies: Fever Eyes: denies: Decreased vision Ears: denies: Ear pain Nose: denies: Rhinorrhea / runny nose, Congestion Throat: denies: Sore throat Cardiac: denies: Chest pain / pressure, Palpitations Respiratory: reports: Dyspnea, Cough. 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: Oophrectomy Cardiovascular: Valve replacement - Present Medications Home Medications: Ambulatory Orders Medication Instructions Recorded Confirmed Alendronate Sodium [Fosamax] 12/28/14 12/28/14 Aspirin [Aspir 81] 12/28/14 12/28/14 Calcium Carbonate [Calcium] 12/28/14 12/28/14 Hydrochlorothiazide 12/28/14 12/28/14 Levothyroxine Sodium 12/28/14 12/28/14 Meclizine HCl 12/28/14 12/28/14 Vit D3/Vit E AC/Safflower Oil 12/28/14 12/28/14 [Vitamin E Oil-Vitamin D] Warfarin Sodium 12/28/14 12/28/14 - Allergies Allergies/Adverse Reactions: Allergies Allergy/AdvReac Type Severity Reaction Status Date / Time codeine Allergy Unknown Verified 04/21/19 12:41 - Social History Does the pt smoke?: No Smoking Status: Never smoker Does the pt drink ETOH?: No Does the pt have substance abuse?: No - Immunizations Immunizations are current?: Yes - POLST Patient has POLST: No PD ED PE NORMAL - Vitals Vital signs reviewed: Yes (wide pulse pressure) - General General: Alert and oriented X 3, Well developed/nourished, Other (tachypneic at rest ) - HEENT HEENT: Atraumatic, PERRL, EOMI - Neck Neck: Supple, no meningeal sign, No bony TTP - Cardiac Cardiac: Other (irregularly irregular with 2/6 holosystolic murmer with ejection click .) - Respiratory Respiratory: Other (Tachypneic at rest with diminished breath sounds in the right base that clear at the top 1/3third of the lung. 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, No motor deficit, No sensory deficit, Normal speech Eye Opening: Spontaneous Motor: Obeys Commands Verbal: Oriented GCS Score: 15 - Psych Psych: Normal mood, Normal affect Results - Vitals Vitals: Vital Signs - 24 hr 04/21/19 04/21/19 04/21/19 12:42 12:43 14:43 Temperature 36.7 C 36.7 C Heart Rate 96 96 93 Respiratory 22 22 17 Rate Blood Pressure 110/36 L 110/36 L 106/73 O2 Saturation 98 98 96 04/21/19 16:00 Temperature Heart Rate 90 Respiratory 23 Rate Blood Pressure 116/48 L O2 Saturation 97 Oxygen O2 Source Room air - EKG (time done) 1413 Rate: Rate (enter#) (84) Rhythm: NSR, Other (PVC's) Intervals: Prolonged QT QRS: Low voltage Ischemia: Non specific changes Compare to prior EKG: Changed from prior EKG (SPT 12-28-2014 voltage is lower and the QT interval has increased) Computer interpretation: Agree with computer - Labs Labs: Laboratory Tests 04/21/19 04/21/19 04/21/19 14:30 14:30 14:30 WBC 6.7 RBC 5.05 Hgb 13.0 Hct 41.6 MCV 82.4 MCH 25.7 L MCHC 31.3 L RDW 18.8 H Plt Count 301 MPV 9.8 Neut # (Auto) 5.1 Lymph # (Auto) 0.6 L Ritchie # (Auto) 0.9 Eos # (Auto) 0.1 Baso # (Auto) 0.1 Absolute Nucleated RBC 0.00 Nucleated RBC % 0.0 PT 51.0 H INR 4.9 H* Sodium 134 L Potassium 4.4 Chloride 96 L Carbon Dioxide 24 Anion Gap 14.0 H BUN 40 H Creatinine 1.6 H Estimated GFR (MDRD) 31 L Glucose 97 Lactic Acid Calcium 9.4 Total Bilirubin 1.7 H AST 37 ALT 25 Alkaline Phosphatase 90 Troponin I High Sens B-Natriuretic Peptide Total Protein 7.7 Albumin 3.8 Globulin 3.9 Albumin/Globulin Ratio 1.0 Lipase 35 Urine Color Urine Clarity Urine pH Ur Specific [place] Urine Protein Urine Glucose (UA) Urine Ketones Urine Occult Blood Urine Nitrite Urine Bilirubin Urine Urobilinogen Ur Leukocyte Esterase Ur Microscopic Review Urine Culture Comments 04/21/19 04/21/19 04/21/19 14:30 14:30 14:30 WBC RBC Hgb Hct MCV MCH MCHC RDW Plt Count MPV Neut # (Auto) Lymph # (Auto) Ritchie # (Auto) Eos # (Auto) Baso # (Auto) Absolute Nucleated RBC Nucleated RBC % PT INR Sodium Potassium Chloride Carbon Dioxide Anion Gap BUN Creatinine Estimated GFR (MDRD) Glucose Lactic Acid 1.5 Calcium Total Bilirubin AST ALT Alkaline Phosphatase Troponin I High Sens 44.8 H* B-Natriuretic Peptide 1953 H Total Protein Albumin Globulin Albumin/Globulin Ratio Lipase Urine Color Urine Clarity Urine pH Ur Specific [place] Urine Protein Urine Glucose (UA) Urine Ketones Urine Occult Blood Urine Nitrite Urine Bilirubin Urine Urobilinogen Ur Leukocyte Esterase Ur Microscopic Review Urine Culture Comments 04/21/19 04/21/19 14:40 16:13 WBC RBC Hgb Hct MCV MCH MCHC RDW Plt Count MPV Neut # (Auto) Lymph # (Auto) Ritchie # (Auto) Eos # (Auto) Baso # (Auto) Absolute Nucleated RBC Nucleated RBC % PT INR Sodium Potassium Chloride Carbon Dioxide Anion Gap BUN Creatinine Estimated GFR (MDRD) Glucose Lactic Acid Calcium Total Bilirubin AST ALT Alkaline Phosphatase Troponin I High Sens 32.2 H* B-Natriuretic Peptide Total Protein Albumin Globulin Albumin/Globulin Ratio Lipase Urine Color YELLOW Urine Clarity CLEAR Urine pH 5.5 Ur Specific [place] 1.020 Urine Protein NEGATIVE Urine Glucose (UA) NEGATIVE Urine Ketones NEGATIVE Urine Occult Blood NEGATIVE Urine Nitrite NEGATIVE Urine Bilirubin SMALL H Urine Urobilinogen 0.2 (NORMAL) Ur Leukocyte Esterase NEGATIVE Ur Microscopic Review NOT INDICATED Urine Culture Comments NOT INDICATED - Rads (name of study) Chest Radiology: Prelim report reviewed (IMPRESSION: Moderate to large right pleural effusion. ), EMP read indepedently, See rad report Procedures - IVC sono (time) 1400 Bedside IVC sono: IVC measures (cm) (1.73), IVC collapsed c insp (cm) (1.73), High CVP PD MEDICAL DECISION MAKING - ED course Complexity details: reviewed old records, reviewed results, re-evaluated patient, considered differential, d/w patient, d/w family ED course: 78-year-old female with a history of prosthetic aortic valve and congestive heart failure has a right-sided pleural effusion and this has reaccumulated in the past 3 weeks. She has enough pleural fluid that it is impeding her breathing and she is administered intravenous Lasix and has some improvement. She will need more aggressive diuresis and potentially thoracentesis therapeutically. Her INR today is 4.9 And she will need to hold a dose of Coumadin before attempting a therapeutic thoracentesis. Departure - Departure Disposition: ED Place in Observation Clinical Impression: Pleural effusion due to CHF (congestive heart failure), Supratherapeutic INR Condition: Stable
--- NOTE | 2019-04-21 14:39 | XRAY Report ---
Reason: chest pain Procedure Date: 04/21/2019 Accession Number: [id number] / [id number] Procedure: XR - Chest 1 View X-Ray CPT Code: 35932 Final Report FULL RESULT: EXAM: CHEST RADIOGRAPHY EXAM DATE: 04/21/2019 02:26 PM. CLINICAL HISTORY: Chest pain. COMPARISON: 04/26/2015 10:42 AM. TECHNIQUE: 1 view. FINDINGS: Heart size within normal limits. Moderate to large right pleural effusion. Adjacent consolidation and volume loss, favor atelectasis. Mild diffuse vascular/interstitial prominence. There may be a small left effusion. No pneumothorax. Right apical pleural calcifications. IMPRESSION: Moderate to large right pleural effusion. RADIA
[2019-04-21 14:46] LABS: BASOPHILS # (AUTO) 0.1 10^3/uL (0.0-0.1); EOSINOPHILS # (AUTO) 0.1 10^3/uL (0.0-0.7); EOSINOPHILS % (AUTO) 0.9 %; LYMPHOCYTES # (AUTO) 0.6 10^3/uL (1.5-3.5); LYMPHOCYTES % (AUTO) 8.6 %; MEAN CORPUSCULAR HEMOGLOBIN 25.7 pg (27.0-31.0); MEAN CORPUSCULAR HGB CONC 31.3 g/dL (32.0-36.0); MEAN CORPUSCULAR VOLUME 82.4 fL (81.0-99.0); MEAN PLATELET VOLUME 9.8 fL (7.9-10.8); MONOCYTES # (AUTO) 0.9 10^3/uL (0.0-1.0); MONOCYTES % (AUTO) 13.4 %; NEUTROPHILS # (AUTO) 5.1 10^3/uL (1.5-6.6); NEUTROPHILS % (AUTO) 75.8 %; PLT - PLATELET COUNT 301 10^3/uL (130-450); RED BLOOD COUNT 5.05 10^6/uL (4.20-5.40); RED CELL DISTRIBUTION WIDTH 18.8 % (12.0-15.0); WHITE BLOOD COUNT 6.7 x10^3/uL (4.8-10.8)
[2019-04-21 14:53] LABS: INR 4.9 (0.8-1.2)
[2019-04-21 14:56] LABS: ALBUMIN 3.8 g/dL (3.2-5.5); BILIRUBIN,TOTAL 1.7 mg/dL (0.2-1.0); CALCIUM 9.4 mg/dL (8.5-10.3); CREATININE 1.6 mg/dL (0.4-1.0); TOTAL PROTEIN 7.7 g/dL (6.7-8.2)
[2019-04-21 14:57] LABS: GLUCOSE, URINE (UA) NEGATIVE (NEGATIVE); KETONES,URINE (UA) NEGATIVE (NEGATIVE); LEUKOCYTE ESTERASE, URINE NEGATIVE (NEGATIVE); NITRITE,URINE NEGATIVE (NEGATIVE); OCCULT BLOOD,URINE NEGATIVE (NEGATIVE); PH,URINE 5.5 PH (5.0-7.5); PROTEIN,URINE NEGATIVE (NEGATIVE); UROBILINOGEN,URINE 0.2 (NORMAL) E.U./dL (NORMAL)
[2019-04-21 15:11] LABS: BILIRUBIN,URINE SMALL (NEGATIVE); CLARITY,URINE CLEAR (CLEAR); ICTOTEST,URINE POSITIVE
--- NOTE | 2019-04-21 17:56 | HISTORY & PHYSICAL EXAMINATION ---
Chief Complaint - Chief Complaint Chief Complaint: shortness of breath, leg swelling History of Present Illness - Admitted From Admitted From:: ED - History Obtained From Records Reviewed: yes History obtained from: chart review, patient Exam Limitations: SOA - History of Present Illness HPI Comment/Other: Enma Helton is pleasant 78-year-old female with a past medical history of hypertension, aortic valve replacement, CHF, CLL, status post chemotherapy, breast cancer, skin cancer, and colon cancer, status post bowel surgery, hypothyroidism, urinary incontinence, nocturnal oxygen use, COPD, and insomnia. The patient notes her regular tissue rewinder drained her right lung on (04/01/2019), this was a planned procedure. She notes that since about 2 weeks ago, she has had progressive shortness of breath. She notes that yesterday she just became frustrated, with dizzy spells, chills, and her weight has increased (about 4 lbs in the past few days) with BLE edema, so needed to come to the ED. She states that she cannot even take a few steps without becoming severely short of breath and her cough has been non-productive. A chest x-ray shows a large right pleural fluid, which is causing her profound shortness of breath, which was improved since getting IV lasix in the ED. She will be continued on aggres sive diuresis and potentially thoracentesis therapeutically. Labs show an INR of 4.9, so her Coumadin will be held while we start diuresis. If no improvement, the patient will need a right therapeutic thoracentesis. History - Past Medical History Cardiovascular: reports: Congestive heart failure, Hypertension, High ch olesterol, Coronary artery disease, Murmur, Valve disorder Respiratory: reports: COPD, Shortness of breath, Other (recurrent pleural effusion) Neuro: reports: Dementia, Headaches, Peripheral neuropathy, Tremors Endocrine/Autoimmune: reports: HyPOthyroidism GI: reports: GERD DISEASE MANAGEMENT NURSE: reports: Breast cancer : reports: Incontinence, Renal insuffiency, Nocturia, Frequency HEENT: reports: Chronic vision loss, Chronic sinusitis, Chronic hearing loss Psych: reports: Depression Musculoskeletal: reports: Osteoarthritis, Osteoporosis, Fatigue, Chronic back pain Derm: reports: None MRSA Hx?: No Other Past Medical History: Colon cancer, CLL, skin cancer - Past Surgical History General: reports: Appendectomy, Bowel surgery /DISEASE MANAGEMENT NURSE: reports: Oophrectomy Cardiovascular: reports: Valve replacement HEENT: reports: Cataracts Derm: reports: Skin cancer surgery - Family & Social History Family History: Mother: , Alzheimer's Disease, Father: , Alzheimer's Disease, Hypertension Living arrangement: At home Living Situation: With spouse/s.o. 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 Her is disabled from a stroke and they have caregivers daily for 3 hours/day. The patient admits to using tobacco (smoking) from age [age], denies alcoholism, or ilicit drug use. She wishes to be a DNR/DNI. - Substance History Use: Uses substance without health or social issues: NONE Abuse: Recurrent use of substance despite neg consequences: NONE Dependence: Experiences withdrawal or developed tolerances: NONE - POLST Patient has POLST: No POLST Status: DNR Meds/Allgy - Home Medications Home Medications: Ambulatory Orders Medication Instructions Recorded Confirmed Alendronate Sodium [Fosamax] 12/28/14 12/28/14 Aspirin [Aspir 81] 12/28/14 12/28/14 Calcium Carbonate [Calcium] 12/28/14 12/28/14 Hydrochlorothiazide 12/28/14 12/28/14 Levothyroxine Sodium 12/28/14 12/28/14 Meclizine HCl 12/28/14 12/28/14 Vit D3/Vit E AC/Safflower Oil 12/28/14 12/28/14 [Vitamin E Oil-Vitamin D] Warfarin Sodium 12/28/14 12/28/14 - Allergies Allergies/Adverse Reactions: Allergies Allergy/AdvReac Type Severity Reaction Status Date / Time codeine Allergy Unknown Verified 04/21/19 12:41 Review of Systems - Constitutional Constitutional: reports: Fatigue, Chills, Malaise, Weakness, Poor appetite, Weight gain - Eyes Eyes: reports: Blurred vision, Vision loss - Ears, Nose & Throat Ears, Nose & Throat: reports: Hearing loss, Vertigo, Nasal congestion, Postnasal drainage, Hoarseness - Cardiovascular Cariovascular: reports: Palpitations, Edema, Lightheadedness, Exertional dyspnea, Decr. exercise tolerance, Orthopnea - Respiratory Respiratory: reports: Cough, Orthopnea, SOB at rest, SOB with exertion - Gastrointestinal Gastrointestinal: reports: Abdominal distention, Change in bowel habits, Nausea, Reflux/heartburn, Bloating, Poor appetite - Genitourinary Genitourinary: reports: Dysuria, Frequency, Urgency, Incontinence, Nocturia - Musculoskeletal Musculoskeletal: reports: Back pain, Muscle aches, Stiffness, Limited range of motion, Muscle weakness - Integumentary Integumentary: reports: Dryness, Pigment changes - Neurological Neurological: reports: General weakness, Focal weakness, Dizziness, Numbness, Memory problems, Pre-existing deficit - Psychiatric Psychiatric: reports: Depression - Endocrine Endocrine: reports: Intolerance to cold - Hematologic/Lymphatic Hematologic/Lymphatic: reports: Anemia, Recurrent infections - All Other Systems All Other Systems: reports: Reviewed and negative Prior Level of Functionality: Drives a car, independent, cares for disabled , uses a cane. Exam - Vital Signs Reviewed Vital Signs: Yes Vital Signs: Vital Signs x48h Temp Pulse Resp BP Pulse Ox 04/21/19 16:00 90 23 116/48 L 97 04/21/19 14:43 93 17 106/73 96 04/21/19 12:43 36.7 C 96 22 110/36 L 98 04/21/19 12:42 36.7 C 96 22 110/36 L 98 - Physical Exam General Appearance: positive: Alert, Moderate distress, Anxious Eyes Bilateral: positive: PERRL, Other (bilateral scleral erythema) ENT: positive: Pharyngeal erythema, Dry mucous membranes Neck: positive: Trachea midline Respiratory: positive: Chest non-tender, Other (absent to right low lung base, scattered crackles, shallow breathing, cough, few word sentances) Cardiovascular: positive: Irregularly irregular, Tachycardia, JVD present, Systolic murmur, Decreased pulse(s) Peripheral Pulses: positive: 1+ Abdomen: positive: Non-tender, Hepatomegaly, Abnml bowel sounds (hyperactive, x4 quadrants) Back: positive: Nml inspection Skin: positive: Warm, Dry, Cyanosis (tip of nose, fingertips), Other (bronze toned skin, palmar erythema) Extremities: positive: Pedal edema, Other (pitting edema to BLEs, extending up to low abdomen) Neurologic/Psychiatric: positive: Oriented x3, CN's nml (2-12), Weakness, Sensory loss, Slurred/abnml speech (few word sentances due to shortness of breath), Depressed mood/affect (flat) Reflexes: Bicep (R): 2+, Bicep (L): 2+ Conclusion/Plan - Problem List (1) Pleural effusion on right Conclusion/Plan: -Pearl Peller Carlee Sullivan performed a planned right thoracentesis on 04/01/2019 -Baseline moderate to severe COPD due to longstanding tobacco dependence -Strong personal history of cancer including: skin, colon, breast, and CLL, all thought to be in remission -For the past 2 weeks has had progressive shortness of breath -Imaging of a chest x-ray confirms a large right pleural effusion -Attempt diuretics, supportive care -Await echo to evaluate for possibly cardiac related as the source of this recurrent right pleural effusion -Continue diuretics, monitor labs, provide respiratory support Acute on chronic congestive heart failure -Status post aortic valve tissue replacement ~ 12 years ago -Dr. Nagy is primary machine shop worker, no recent visits per patient -Patient notes a 4 lb weight gain in the past few days -BLE edema that has become worse leading to the patient coming to the ED -Takes HCTZ, warfarin, pharmacy to review -Tachycardic, pitting edema, shortness of breath, orthopnea, +JVD, +murmur on exam -Elevated BNP of 1953, prior level on 04/02/2018 of 510, also with ROBERT, so may be falsely elevated -IV Lasix given while in the ED, indwelling lemos -Continue daily weights, strict I/Os, provide respiratory support, continue high dose IV Lasix, obtain an updated echo in the AM Supratherapeutic INR -INR 4.9 today -Takes Coumadin for aortic valve replacement -Possibly will reverse if a thoracentesis is needed -Holding Coumadin, daily INR, watch for acute bleeding ROBERT -Baseline serum creatinine has been ~1.1 -Now elevated to 1.6 -Suspect pre-renal due to poor cardiac output (CHF) -Continue strict I/Os, indwelling lemos for accurate I/Os, IV Lasix, start a rate control medication, routine labs Status post aortic valve replacement -Patient states about 12 years ago -On exam, +systolic murmur -Ordering echo for the AM CLL -Patient thinks she has been in remission -No current oncologist -Requesting records from PCP Tobacco dependence in remission -Admits to smoking from age [age], now with COPD (emphysema) -Uses nocturnal O2 COPD with emphysema -Patient notes that she uses oxygen at night and sets it on 20 -Long standing tobacco dependence from age [age] -Recurrent right pleural effusion -Unknown last echo to evaluate for pulmonary hypertension -Provide respiratory support, Xopenex PRN, guaifenesin, await echo results Insomnia -Takes Ambien at home, added to med list Hypothyroidism -No recent TSH -Takes Sythroid at home, will continue here - Lab Results Lab results reviewed: Yes Fish Bones: 04/22/19 05:05 04/22/19 05:05 - Diagnostic Imaging Results Diagnostic Imaging Results: positive: Final report reviewed Diagnostic Imaging Results Comments: EXAM: CHEST RADIOGRAPHY 04/21/2019 02:26 PM FINDINGS: Heart size within normal limits. Moderate to large right pleural effusion. Adjacent consolidation and volume loss, favor atelectasis. Mild diffuse vascular/interstitial prominence. There may be a small left effusion. No pneumothorax. Right apical pleural calcifications. IMPRESSION: Moderate to large right pleural effusion. Core Measures - Anticipated LOS I expect patient to be DC'd or transferred within 96 hours.: Yes - DVT/VTE - Prophylaxis VTE/DVT Device ordered at admit?: Yes VTE/DVT Prophylaxis med ordered at admit?: No Not Ordered - Medical Reason: Contraindicated - Stroke - Rehab Assessment Rehab services assessment to be ordered?: No Not Ordered - Medical Reason: Contraindicated - AMI - Statin at Admit Aspirin Prescribed on Admit: No Not Ordered - Medical Reason: Contraindicated
[2019-04-21] MEDS ORDERED: LORazepam 0.5 MG TABLET PO PRN (19:09)
[2019-04-21] MEDS ORDERED: ZOLPIDEM 5 MG TABLET PO PRN (19:38)
[2019-04-21] MEDS: guaiFENesin 600 MG TABLET PO SCH (20:10)
[2019-04-21] MEDS: FUROSEMIDE 40 MG/4 ML VIAL IVP SCH (20:10)
[2019-04-21] MEDS: SODIUM CHLORIDE FLUSH 0.9% 10 ML SYRINGE IVP SCH (20:11)
[2019-04-22] MEDS: SODIUM CHLORIDE FLUSH 0.9% 10 ML SYRINGE IVP SCH ×3 (00:14→16:25)
[2019-04-22 05:29] LABS: BASOPHILS # (AUTO) 0.1 10^3/uL (0.0-0.1); BASOPHILS % (AUTO) 1.1 %; EOSINOPHILS # (AUTO) 0.2 10^3/uL (0.0-0.7); EOSINOPHILS % (AUTO) 2.8 %; HGB - HEMOGLOBIN 12.2 g/dL (12.0-16.0); LYMPHOCYTES % (AUTO) 15.7 %; MEAN CORPUSCULAR HEMOGLOBIN 24.8 pg (27.0-31.0); MEAN CORPUSCULAR HGB CONC 30.3 g/dL (32.0-36.0); MEAN CORPUSCULAR VOLUME 81.9 fL (81.0-99.0); MEAN PLATELET VOLUME 9.6 fL (7.9-10.8); MONOCYTES # (AUTO) 0.9 10^3/uL (0.0-1.0); MONOCYTES % (AUTO) 15.3 %; NEUTROPHILS % (AUTO) 64.6 %; PLT - PLATELET COUNT 278 10^3/uL (130-450); RED BLOOD COUNT 4.91 10^6/uL (4.20-5.40); RED CELL DISTRIBUTION WIDTH 18.7 % (12.0-15.0); WHITE BLOOD COUNT 6.1 x10^3/uL (4.8-10.8)
[2019-04-22 05:35] LABS: INR 4.1 (0.8-1.2); PT - PROTHROMBIN TIME 43.3 secs (9.9-12.6)
[2019-04-22 05:46] LABS: ALBUMIN 3.4 g/dL (3.2-5.5); ALBUMIN/GLOBULIN RATIO 0.9 (1.0-2.2); BILIRUBIN,TOTAL 1.4 mg/dL (0.2-1.0); CALCIUM 9.1 mg/dL (8.5-10.3); CREATININE 1.5 mg/dL (0.4-1.0); MAGNESIUM 2.2 mg/dL (1.7-2.8)
[2019-04-22] MEDS: FUROSEMIDE 40 MG/4 ML VIAL IVP SCH (05:52)
[2019-04-22] MEDS: SODIUM CHLORIDE FLUSH 0.9% 10 ML SYRINGE IVP PRN (05:52)
[2019-04-22] MEDS: guaiFENesin 600 MG TABLET PO SCH ×2 (08:25→20:08)
[2019-04-22] MEDS: METOPROLOL SUCCINATE 25 MG TABLET PO SCH (08:31)
[2019-04-22] MEDS: SPIRONOLACTONE 25 MG TABLET PO SCH (08:31)
[2019-04-22] MEDS: LEVALBUTEROL 1.25 MG/3 ML NEB INH PRN (13:08)
--- NOTE | 2019-04-22 14:24 | ADVANCE CARE PLANNING NOTE ---
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 She speaks in a matter of fact fashion, and is the ability to make appropriate medical decisions. - Diagnosis for Encounter (1) Pleural effusion on right Summary: -Chief Inspector Carlee Sullivan performed a planned right thoracentesis on 04/01/2019 -Baseline moderate to severe COPD due to longstanding tobacco dependence -Strong personal history of cancer including: skin, colon, breast, and CLL, all thought to be in remission -For the past 2 weeks has had progressive shortness of breath -Imaging of a chest x-ray confirms a large right pleural effusion -Preliminary echo results show advanced cor pulmonale, severe mitral stenosis, severely impaired LV, likely the source of her recurrent right pleural effusion -Continue diuretics, monitor labs, provide respiratory support - Encounter Subjective/Patient's Story: The patient states that her biggest support continues to be Alexis, her sweet of almost 45-years. Since having his stroke, he is dependent on her physically, although they have help daily for about 3 hours. Their caregiver is staying extra while Enma remains in the hospital. Enma states that she was not able to have children since they surgically removed one of her ovaries and fallopian tubes, and her other fallopian tube was clogged. She and her did not want to spend $10,000 for artificial means of becoming , so never had children. She came from a large family, she is one of 8 children. Many of her siblings live in [place], some in [place], and [place]. She and her moved frequently in their younger years, including her favorite place of [place]. 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 She states that they have made [facility] their permanent residence 30-years ago since moving here to care for Marlyn mother, who has since . Enma states that she began to feel poorly starting sometime after this past Thanksgiving (2019), and mostly had to do with her progressive poor activity tolerance. She states that she has had cancer several times, had a valve replacement, and still has CLL, so feels very terry to still be alive. She states that the anxiety many times takes over and she fears leaving her Alexis alone if she were to . She states that she enjoys being home, still drives a car for her usual errands, and just wants to have less trouble with her symptoms on a daily basis to keep doing her usual activities. She states that her water heater at home just leaked all over the floor, so she needs the marta replaced. She frequently worries about money, but laughs about her accounting way of thinking. She is happy to have extra support by this Palliative care consult tentatively set for tomorrow. During this meeting, her friend Valorie Larson gives her a call, who is her secondary support person. She is going to ask that Alexis be brought in, and Valorie be present for tomorrow during the visit with Ruma Tian. Objective/Medical Story: Enma Helton is pleasant 78-year-old female with a past medical history of hypertension, aortic valve replacement, CHF, CLL, status post chemotherapy, breast cancer, skin cancer, and colon cancer, status post bowel surgery, hypothyroidism, urinary incontinence, nocturnal oxygen use, COPD, and insomnia. The patient notes her regular strap machine operator automatic drained her right lung on (04/01/2019), this was a planned procedure. She notes that since about 2 weeks ago, she has had progressive shortness of breath. She notes that yesterday she just became frustrated, with dizzy spells, chills, and her weight has increased (about 4 lbs in the past few days) with BLE edema, so needed to come to the ED. She states that she cannot even take a few steps without becoming severely short of breath and her cough has been non-productive. A chest x-ray shows a large right pleural fluid, which is causing her profound shortness of breath, which was improved since getting IV lasix in the ED. She will be continued on aggressive diuresis and potentially thoracentesis therapeutically. Labs show an INR of 4.9, so her Coumadin will be held while we start diuresis. If no improvement, the patient will need a right therapeutic thoracentesis. Since the time of admission, the patient has been tearful, with anxiety. Today, after being informed that her hospital stay is observation, her crying and anxiety has become worse, prompting a second check up by myself. An advanced care planning conference to discuss the rest of her life was necessary today. Goals of Care: Symptom management Avoid any further invasive procedures Palliative care to follow Plan: Continue gentle diuresis Indwelling lemos Monitor for symptoms Routine labs Respiratory cares Manage anxiety Code Status: Do Not Attempt Resuscitation Time spent on advance care plannin
[2019-04-22] MEDS ORDERED: ALPRAZolam 0.25 MG TABLET PO PRN (14:37)
--- NOTE | 2019-04-22 15:33 | PROVIDER PROGRESS NOTE ---
Subjective - Prog Note Date Prog Note Date: 04/22/19 Prog Note Time: 15:31 - Subjective Pt reports feeling: Improved Subjective: Enma complains of anxiety, shortness of breath, feeling constipated, and no sleep while in the hospital. She states that overall, she feels improved, but continues to have orthopnea, restlessness and tearful at times. She is going to require at least one more night of stay for continued diuresis after learning of her severe cor pulmonale today as the primary cause of her recurrent right pleural effusions. Hypotension has limited the second dose of diuretics, so starting with low dose midodrine. She is looking forward to a Palliative care consult on 04/23/2019 to speak more of disease progression, and for ongoing support once returning home. Current Medications - Current Medications Current Medications: Active Medications: Alprazolam (Xanax) 0.25 mg PO Q6HR PRN Aspirin ([place] Aspirin) 81 mg PO DAILY [facility] Guaifenesin (Mucinex) 600 mg PO BID [facility] Lactulose Enulose 10 gm PO DAILY [facility] Levalbuterol HCl (Xopenex) 1.25 mg INH Q4H PRN Levothyroxine Sodium Synthroid 75 mcg PO QDAC [facility] Metoprolol Succinate (Toprol Xl) 25 mg PO DAILY [facility] Spironolactone (Aldactone) 25 mg PO DAILY [facility] Zolpidem Tartrate (Ambien) 10 mg PO QPM [facility] Midodrine 2.5mg PO TIDWM HOME meds: Alendronate Sodium [Fosamax] 12/28/14 Aspirin [Aspir 81] 12/28/14 Calcium Carbonate [Calcium] 12/28/14 Hydrochlorothiazide 12/28/14 Levothyroxine Sodium 12/28/14 Meclizine HCl 12/28/14 Vit D3/Vit E AC/Safflower Oil [Vitamin E Oil-Vitamin D] 12/28/14 Warfarin Sodium 12/28/14 Tiotropium Br/Olodaterol HCl [Stiolto Respimat Inhal [place]] 04/22/19 Objective - Vital Signs/Intake & Output Reviewed Vital Signs: Yes Vital Signs: Vital Signs x48h Temp Pulse Pulse Resp BP Pulse Ox 04/22/19 13:03 87 16 04/22/19 12:42 37.2 C 86 20 94/43 L 100 04/22/19 07:56 36.6 C 97 20 120/62 98 Intake & Output: Intake & Output 04/19/19 04/20/19 04/21/19 04/22/19 23:59 23:59 23:59 23:59 Intake Total 340 560 Output Total 100 1175 Balance 240 -615 - Objective General Appearance: positive: Alert, Moderate distress, Anxious Eyes Bilateral: positive: PERRL Eyes: OU Other (bilateral erythema, lid inflammation) ENT: positive: Pharyngeal erythema, Dry mucous membranes Neck: positive: Trachea midline, Lymphadenopathy (R), Lymphadenopathy (L), Stiff neck Respiratory: positive: Chest non-tender, No respiratory distress, Rhonchi, Other (absent in low right base, scattered crackles, + cough (now productive)) Cardiovascular: positive: Irregularly irregular, Tachycardia, JVD present, Systolic murmur, Diastolic murmur, Gallop/S3, Decreased pulse(s) Peripheral Pulses: 1+ Radial (R), 1+ Radial (L) Abdomen: positive: Non-tender, Nml bowel sounds, Guarding, Other (rounded, edema, soft) Back: positive: Nml inspection Skin: positive: No rash, Warm, Dry, Other (pale, palm erythema, cyanotic tip of nose, redness around eyes, scattered bruising) Neurologic/Psychiatric: positive: Oriented x3, CN's nml (2-12), Motor nml, W eakness, Depressed mood/affect (flat, hopeless, tearful) Reflexes: Bicep (R): 3+, Bicep (L): 3+ - Lab Results Fish Bones: 04/22/19 05:05 04/22/19 05:05 Other Labs: Lab Results x24hrs 04/22/19 04/22/19 04/22/19 Range/Units 05:05 05:05 05:05 WBC 6.1 (4.8-10.8) x10^3/uL RBC 4.91 (4.20-5.40) 10^6/uL Hgb 12.2 (12.0-16.0) g/dL Hct 40.2 (37.0-47.0) % MCV 81.9 (81.0-99.0) fL MCH 24.8 L (27.0-31.0) pg MCHC 30.3 L (32.0-36.0) g/dL RDW 18.7 H (12.0-15.0) % Plt Count 278 (130-450) 10^3/uL MPV 9.6 (7.9-10.8) fL Neut # (Auto) 4.0 (1.5-6.6) 10^3/uL Lymph # (Auto) 1.0 L (1.5-3.5) 10^3/uL [place] # (Auto) 0.9 (0.0-1.0) 10^3/uL Eos # (Auto) 0.2 (0.0-0.7) 10^3/uL Baso # (Auto) 0.1 (0.0-0.1) 10^3/uL Absolute Nucleated RBC 0.00 x10^3/uL Nucleated RBC % 0.0 /100WBC PT 43.3 H (9.9-12.6) secs INR 4.1 H (0.8-1.2) Sodium 136 (135-145) mmol/L Potassium 4.4 (3.5-5.0) mmol/L Chloride 99 L (101-111) mmol/L Carbon Dioxide 24 (21-32) mmol/L Anion Gap 13.0 (6-13) BUN 43 H (6-20) mg/dL Creatinine 1.5 H (0.4-1.0) mg/dL Estimated GFR (MDRD) 34 L (>89) Glucose 93 (70-100) mg/dL Calcium 9.1 (8.5-10.3) mg/dL Magnesium 2.2 (1.7-2.8) mg/dL Total Bilirubin 1.4 H (0.2-1.0) mg/dL AST 36 (10-42) IU/L ALT 22 (10-60) IU/L Alkaline Phosphatase 84 (42-121) IU/L Troponin I High Sens (2.3-14.8) ng/L Total Protein 7.0 (6.7-8.2) g/dL Albumin 3.4 (3.2-5.5) g/dL Globulin 3.6 (2.1-4.2) g/dL Albumin/Globulin Ratio 0.9 L (1.0-2.2) 02/18/20 Range/Units 16:13 WBC (4.8-10.8) x10^3/uL RBC (4.20-5.40) 10^6/uL Hgb (12.0-16.0) g/dL Hct (37.0-47.0) % MCV (81.0-99.0) fL MCH (27.0-31.0) pg MCHC (32.0-36.0) g/dL RDW (12.0-15.0) % Plt Count (130-450) 10^3/uL MPV (7.9-10.8) fL Neut # (Auto) (1.5-6.6) 10^3/uL Lymph # (Auto) (1.5-3.5) 10^3/uL [place] # (Auto) (0.0-1.0) 10^3/uL Eos # (Auto) (0.0-0.7) 10^3/uL Baso # (Auto) (0.0-0.1) 10^3/uL Absolute Nucleated RBC x10^3/uL Nucleated RBC % /100WBC PT (9.9-12.6) secs INR (0.8-1.2) Sodium (135-145) mmol/L Potassium (3.5-5.0) mmol/L Chloride (101-111) mmol/L Carbon Dioxide (21-32) mmol/L Anion Gap (6-13) BUN (6-20) mg/dL Creatinine (0.4-1.0) mg/dL Estimated GFR (MDRD) (>89) Glucose (70-100) mg/dL Calcium (8.5-10.3) mg/dL Magnesium (1.7-2.8) mg/dL Total Bilirubin (0.2-1.0) mg/dL AST (10-42) IU/L ALT (10-60) IU/L Alkaline Phosphatase (42-121) IU/L Troponin I High Sens 32.2 H* (2.3-14.8) ng/L Total Protein (6.7-8.2) g/dL Albumin (3.2-5.5) g/dL Globulin (2.1-4.2) g/dL Albumin/Globulin Ratio (1.0-2.2) ABX Reporting Has patient been on IV antibiotics over the past 48 hours?: No Assessment/Plan - Problem List (1) Pleural effusion on right Impression: -Manager Landscape Carlee Sullivan performed a planned right thoracentesis on 04/01/2019 -Baseline moderate to severe COPD due to longstanding tobacco dependence -Strong personal history of cancer including: skin, colon, breast, and CLL, all thought to be in remission -For the past 2 weeks has had progressive shortness of breath -Imaging of a chest x-ray confirms a large right pleural effusion -Continue diuretics, monitor labs, provide respiratory support 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 These patients manifest signs of right heart failure. Dyspnea and/or fatigue may be present even at rest. Discomfort is increased by physical activity) -Status post aortic valve tissue replacement ~ 12 years ago -Dr. Nagy is primary hand rigger, no recent visits per patient -Patient notes a 4 lb weight gain in the past few days -Weight on admit was 62.5 kg, now 65.5 kg -BLE edema that has become worse leading to the patient coming to the ED -Ongoing pitting edema extending into thighs -Takes HCTZ, warfarin, pharmacy to review -Improved heart rates today, pitting edema, shortness of breath, orthopnea, +JVD, +murmur on exam -Elevated BNP of 1953, prior level on 04/02/2018 of 510 -IV Lasix x1 today, started on metoprolol, indwelling lemos -New preliminary echo notes a severe MS, aortic valve with expected stenosis from a 12 year old mechanical valve, severe LV impairment with a decreased cavity size, LV appears hyperdynamic, EF 75%, LV septal wall which is actually concaved in diastole consistent with RV volume overload, RVSP at rest of 96 mmHg, severe pulmonic stenosis -Continue daily weights, strict I/Os, provide respiratory support Supratherapeutic INR -INR 4.9 on admission, now 4.1 -Likely due to very poor cardiac output, therefore creating less liver perfusion -Takes Coumadin for aortic valve replacement -Holding Coumadin, daily INR, watch for acute bleeding Renal insufficiency ROBERT -Baseline serum creatinine has been ~1.1 -Known history of renal insufficiency -Elevated to 1.6, now 1.5, BUN 43 -Pre-renal due to poor cardiac output (CHF), cor pulmonale -Continue strict I/Os, indwelling lemos, IV Lasix, continue BB, routine labs Mitral stenosis History of aortic valve replacement -Patient states about 12 years ago -On exam, +systolic murmur with a click -Preliminary echo from today notes a severe MS, aortic valve has expected stenosis from a 12 year old mechanical valve -Await Palliative care consult, treat with beta blockers, gentle diuretics CLL History of breast cancer History of colon cancer -No current oncologist -Confirmed after reviewing PCP notes Tobacco dependence in remission -Admits to smoking from age [age], now with COPD (emphysema) -Uses nocturnal O2 -Dr. Morales office notes state the patient continues to smoke, and quit in 2014 -Encourage cessation COPD with emphysema Pulmonary fibrosis -Patient notes that she uses oxygen at night and sets it on 20 -Long standing tobacco dependence from age [age] -Recurrent right pleural effusion -Profound cor pulmonale found on preliminary echo report today -Provide respiratory support, Xopenex PRN, guaifenesin Insomnia -Takes Ambien at home, records from Dr. Flaherty notes 12.5 extended release -Prescribed 10mg for tonight -Monitor for effectiveness Anxiety -Becomes easily tearful -No anti-depressants at home -Combined with frustration, constant struggles with breathing -Thankful for a Palliative care consult on 04/23/2019~ 1430 -Consider offering Zoloft, or low dose lorazepam for her ongoing anxiety Osteoporosis -Takes Fosomax and Vitamin D3 at home, now on hold -Likely a consequence of her longstanding lung disease Hypothyroidism -No recent TSH, checking in the AM -Takes Sythroid 75 mcg at home, will continue here Stable/chronic diagnoses: Hyperlipidemia Vertigo Allergic rhinitis Menieres disease Nonparalytic stroke symptoms History of TIA
[2019-04-22] MEDS: LACTULOSE 10 GM /15 ML UDC PO SCH (16:25)
[2019-04-22] MEDS ORDERED: MIDODRINE 2.5 MG TABLET PO SCH (18:00)
[2019-04-22] MEDS: MIDODRINE 2.5 MG TABLET PO SCH ×2 (18:21→20:53)
[2019-04-22] MEDS: ZOLPIDEM 5 MG TABLET PO SCH (20:08)
[2019-04-23] MEDS: SODIUM CHLORIDE FLUSH 0.9% 10 ML SYRINGE IVP SCH ×3 (00:57→16:17)
[2019-04-23 05:24] LABS: BASOPHILS # (AUTO) 0.1 10^3/uL (0.0-0.1); BASOPHILS % (AUTO) 1.1 %; EOSINOPHILS # (AUTO) 0.2 10^3/uL (0.0-0.7); EOSINOPHILS % (AUTO) 3.8 %; INR 3.7 (0.8-1.2); LYMPHOCYTES # (AUTO) 0.7 10^3/uL (1.5-3.5); LYMPHOCYTES % (AUTO) 11.8 %; MEAN CORPUSCULAR HEMOGLOBIN 26.1 pg (27.0-31.0); MEAN CORPUSCULAR HGB CONC 31.4 g/dL (32.0-36.0); MEAN CORPUSCULAR VOLUME 83.2 fL (81.0-99.0); MEAN PLATELET VOLUME 9.4 fL (7.9-10.8); MONOCYTES # (AUTO) 1.1 10^3/uL (0.0-1.0); MONOCYTES % (AUTO) 17.7 %; NEUTROPHILS # (AUTO) 4.1 10^3/uL (1.5-6.6); NEUTROPHILS % (AUTO) 65.3 %; PLT - PLATELET COUNT 266 10^3/uL (130-450); PT - PROTHROMBIN TIME 39.3 secs (9.9-12.6); RED BLOOD COUNT 4.59 10^6/uL (4.20-5.40); RED CELL DISTRIBUTION WIDTH 18.7 % (12.0-15.0); WHITE BLOOD COUNT 6.3 x10^3/uL (4.8-10.8)
[2019-04-23 05:34] LABS: ALBUMIN 3.2 g/dL (3.2-5.5); ALBUMIN/GLOBULIN RATIO 0.9 (1.0-2.2); BILIRUBIN,TOTAL 1.3 mg/dL (0.2-1.0); CALCIUM 8.9 mg/dL (8.5-10.3); CREATININE 1.1 mg/dL (0.4-1.0); MAGNESIUM 2.2 mg/dL (1.7-2.8); TOTAL PROTEIN 6.7 g/dL (6.7-8.2)
[2019-04-23] MEDS ORDERED: LEVOTHYROXINE 75 MCG TABLET PO SCH (07:00)
[2019-04-23] MEDS: LACTULOSE 10 GM /15 ML UDC PO SCH (08:13)
[2019-04-23] MEDS: METOPROLOL SUCCINATE 25 MG TABLET PO SCH (08:14)
[2019-04-23] MEDS: FUROSEMIDE 40 MG/4 ML VIAL IVP SCH ×2 (08:14→17:56)
[2019-04-23] MEDS: ASPIRIN CHEW 81 MG TABLET PO SCH (08:14)
[2019-04-23] MEDS: MIDODRINE 2.5 MG TABLET PO SCH ×3 (08:14→16:17)
[2019-04-23] MEDS: SODIUM CHLORIDE FLUSH 0.9% 10 ML SYRINGE IVP PRN (08:14)
[2019-04-23] MEDS: guaiFENesin 600 MG TABLET PO SCH ×2 (08:14→20:10)
[2019-04-23] MEDS: SPIRONOLACTONE 25 MG TABLET PO SCH (08:14)
[2019-04-23] MEDS: LEVALBUTEROL 1.25 MG/3 ML NEB INH PRN (09:11)
--- NOTE | 2019-04-23 11:37 | PHARMACY PROGRESS NOTE ---
- Best Possible Medication History Admit Date and Time: 04/23/19 1019 Processed by: Pharmacy Medication History completed: In progress As the person ultimately responsible for medication therapy, providers are able to order a medication from an existing home medication list in [facility] via the "Reconcile Routine" prior to Confirmation of that medication by nursing support worker. Such practice is discouraged except when the physician, in their clinical judgment, deems that a medical need exists for a medication without regard to previous use.
--- NOTE | 2019-04-23 14:48 | PROVIDER PROGRESS NOTE ---
Subjective - Prog Note Date Prog Note Date: 04/23/19 Prog Note Time: 14:57 - Subjective Pt reports feeling: Improved Subjective: Enma was happy that she had some more sleep last night after taking her Ambien. She notes a mild improvement each day and is happy that her legs are no longer swollen. She denies any new symptoms such as chest pain, nausea, vomiting, a new rash, confusion, or coughing up bloody sputum. She is looking forward to her Palliative care consult with Ruma Tian today. Current Medications - Current Medications Current Medications: Active Medications: Alprazolam (Xanax) 0.25 mg PO Q6HR PRN Aspirin ([facility] [place] Aspirin) 81 mg PO DAILY [facility] Furosemide (Lasix Inj 40 Mg Vial) 40 mg IVP BIDDIURETIC [facility] Guaifenesin (Mucinex) 600 mg PO BID [facility] Lactulose (Enulose) 10 gm PO DAILY [facility] Levalbuterol HCl (Xopenex) 1.25 mg INH Q4H PRN Levothyroxine Sodium (Synthroid) 75 mcg PO QDAC [facility] Metoprolol Succinate (Toprol Xl) 25 mg PO DAILY [facility] Midodrine 2.5 mg PO TIDWM [facility] Patient Own Med ( Stiolto Respimat Inhal [place]] 1 Inh) 1 each PO DAILY [facility] Spironolactone (Aldactone) 25 mg PO DAILY [facility] Zolpidem Tartrate (Ambien) 10 mg PO QPM [facility] HOME meds: Aspirin [Aspir 81] 81 mg PO DAILY 12/28/14 Calcium Carbonate [Calcium] 600 mg PO DAILY 12/28/14 Levothyroxine Sodium 100 mcg PO WE 12/28/14 Meclizine HCl 12.5 mg PO DAILY PRN 12/28/14 Warfarin Sodium 2.5 mg PO SUMOWEFRSA 12/28/14 Tiotropium Br/Olodaterol HCl [Stiolto Respimat Inhal [place]] 1 inh PO DAILY 04/22/19 Albuterol Sulf [Ventolin Hfa Inhaler] 1 - 2 puffs PO Q4HR PRN 04/23/19 Cholecalciferol (Vitamin D3) [Vitamin D3] 1,000 units PO DAILY 04/23/19 Folic Acid 0.8 mg PO DAILY 04/23/19 Levothyroxine [Synthroid] 75 mcg PO DAILY 04/23/19 Lisinopril [Zestril] 2.5 mg PO DAILY 04/23/19 Potassium Chloride 10 meq PO QPM 04/23/19 Potassium Chloride 20 meq PO DAILY 04/23/19 Torsemide 20 mg PO DAILY 04/23/19 Warfarin [Coumadin] 5 mg PO TUTH 04/23/19 Zolpidem Tartrate [Ambien Cr] 12.5 mg PO QPM PRN 04/23/19 Objective - Vital Signs/Intake & Output Reviewed Vital Signs: Yes Vital Signs: Vital Signs x48h Temp Pulse Pulse Resp BP Pulse Ox 04/23/19 13:42 36.7 C 86 24 98 04/23/19 12:38 36.7 C 83 20 100/39 L 98 04/23/19 09:11 86 24 04/23/19 08:00 36.4 C L 77 18 105/53 L 96 Intake & Output: Intake & Output 04/20/19 04/21/19 04/22/19 04/23/19 23:59 23:59 23:59 23:59 Intake Total 340 1260 1200 Output Total 100 1475 850 Balance 240 -215 350 - Objective General Appearance: positive: Alert, Moderate distress, Anxious Eyes Bilateral: positive: No lid inflammation Eyes: OU Conjunctivae pale, OU Other (bilateral erythema) ENT: positive: Pharyngeal erythema, Dry mucous membranes Neck: positive: No JVD, Trachea midline Respiratory: positive: Chest non-tender, No respiratory distress, Other (coarse crackles to all of the right posterior lung field, scattered crackles to left, no wheezing) Cardiovascular: positive: Regular rate & rhythm, Systolic murmur, Diastolic murmur, Gallop/S3, Decreased pulse(s) Peripheral Pulses: 1+ Radial (R), 1+ Radial (L) Abdomen: positive: Non-tender, Nml bowel sounds, Other (rounded, soft) Back: positive: Nml inspection Skin: positive: No rash, Warm, Dry, Other (flushed cheeks, bronze toned skin) Extremities: positive: Non-tender, No pedal edema (changed from yesterday, now without pitting edema), Joint swelling Neurologic/Psychiatric: positive: Oriented x3, CN's nml (2-12), Motor nml, Weakness, Sensory loss, Depressed mood/affect Reflexes: Bicep (R): 3+, Bicep (L): 3+ - Lab Results Fish Bones: 04/23/19 04:35 04/23/19 04:35 Other Labs: Lab Results x24hrs 04/23/19 04/23/19 04/23/19 Range/Units 10:50 04:35 04:35 WBC (4.8-10.8) x10^3/uL RBC (4.20-5.40) 10^6/uL Hgb (12.0-16.0) g/dL Hct (37.0-47.0) % MCV (81.0-99.0) fL MCH (27.0-31.0) pg MCHC (32.0-36.0) g/dL RDW (12.0-15.0) % Plt Count (130-450) 10^3/uL MPV (7.9-10.8) fL Neut # (Auto) (1.5-6.6) 10^3/uL Lymph # (Auto) (1.5-3.5) 10^3/uL [place] # (Auto) (0.0-1.0) 10^3/uL Eos # (Auto) (0.0-0.7) 10^3/uL Baso # (Auto) (0.0-0.1) 10^3/uL Absolute Nucleated RBC x10^3/uL Nucleated RBC % /100WBC PT (9.9-12.6) secs INR (0.8-1.2) Sodium (135-145) mmol/L Potassium (3.5-5.0) mmol/L Chloride (101-111) mmol/L Carbon Dioxide (21-32) mmol/L Anion Gap (6-13) BUN (6-20) mg/dL Creatinine (0.4-1.0) mg/dL Estimated GFR (MDRD) (>89) Glucose (70-100) mg/dL Calcium (8.5-10.3) mg/dL Magnesium (1.7-2.8) mg/dL Total Bilirubin (0.2-1.0) mg/dL Direct Bilirubin 0.7 H (0.1-0.5) mg/dL AST (10-42) IU/L ALT (10-60) IU/L Alkaline Phosphatase (42-121) IU/L B-Natriuretic Peptide 1543 H (5-100) pg/mL Total Protein (6.7-8.2) g/dL Albumin (3.2-5.5) g/dL Globulin (2.1-4.2) g/dL Albumin/Globulin Ratio (1.0-2.2) TSH 6.50 H (0.34-5.60) uIU/mL 04/23/19 04/23/19 04/23/19 Range/Units 04:35 04:35 04:35 WBC 6.3 (4.8-10.8) x10^3/uL RBC 4.59 (4.20-5.40) 10^6/uL Hgb 12.0 (12.0-16.0) g/dL Hct 38.2 (37.0-47.0) % MCV 83.2 (81.0-99.0) fL MCH 26.1 L (27.0-31.0) pg MCHC 31.4 L (32.0-36.0) g/dL RDW 18.7 H (12.0-15.0) % Plt Count 266 (130-450) 10^3/uL MPV 9.4 (7.9-10.8) fL Neut # (Auto) 4.1 (1.5-6.6) 10^3/uL Lymph # (Auto) 0.7 L (1.5-3.5) 10^3/uL [place] # (Auto) 1.1 H (0.0-1.0) 10^3/uL Eos # (Auto) 0.2 (0.0-0.7) 10^3/uL Baso # (Auto) 0.1 (0.0-0.1) 10^3/uL Absolute Nucleated RBC 0.00 x10^3/uL Nucleated RBC % 0.0 /100WBC PT 39.3 H (9.9-12.6) secs INR 3.7 H (0.8-1.2) Sodium 135 (135-145) mmol/L Potassium 3.9 (3.5-5.0) mmol/L Chloride 102 (101-111) mmol/L Carbon Dioxide 25 (21-32) mmol/L Anion Gap 8.0 (6-13) BUN 37 H (6-20) mg/dL Creatinine 1.1 H (0.4-1.0) mg/dL Estimated GFR (MDRD) 48 L (>89) Glucose 88 (70-100) mg/dL Calcium 8.9 (8.5-10.3) mg/dL Magnesium 2.2 (1.7-2.8) mg/dL Total Bilirubin 1.3 H (0.2-1.0) mg/dL Direct Bilirubin (0.1-0.5) mg/dL AST 31 (10-42) IU/L ALT 21 (10-60) IU/L Alkaline Phosphatase 82 (42-121) IU/L B-Natriuretic Peptide (5-100) pg/mL Total Protein 6.7 (6.7-8.2) g/dL Albumin 3.2 (3.2-5.5) g/dL Globulin 3.5 (2.1-4.2) g/dL Albumin/Globulin Ratio 0.9 L (1.0-2.2) TSH (0.34-5.60) uIU/mL ABX Reporting Has patient been on IV antibiotics over the past 48 hours?: No Assessment/Plan - Problem List (1) Pleural effusion on right Impression: -Ping Pong Table Assembler Carlee Sullivan performed a planned right thoracentesis on 04/01/2019 -Baseline moderate to severe COPD due to longstanding tobacco dependence -Strong personal history of cancer including: skin, colon, breast, and CLL, all thought to be in remission -For the past 2 weeks has had progressive shortness of breath -Imaging of a chest x-ray confirms a large right pleural effusion -Continue diuretics, monitor labs, provide respiratory support, repeat chest x- ray in the AM 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 These patients manifest signs of right heart failure. Dyspnea and/or fatigue may be present even at rest. Dis comfort is increased by physical activity) -Status post aortic valve tissue replacement ~ 12 years ago -Dr. Nagy is primary germination testing manager, no recent visits per patient -Weight down 1kg, from 65.5 kg to 64.5 kg -BLE edema now nearly resolved -Holding warfarin -Elevated BNP to 1543, reduced from 1953 -IV Lasix 40mg BID today, continues on metoprolol, indwelling lemos -Echo notes a severe MS, aortic valve with expected stenosis from a 12 year old mechanical valve, severe LV impairment with a decreased cavity size, LV appears hyperdynamic, EF 75%, LV septal wall which is actually concaved in diastole consistent with RV volume overload, RVSP at rest of 96 mmHg, severe pulmonic stenosis -Continue daily weights, strict I/Os, provide respiratory support Supratherapeutic INR -INR 4.9 on admission, now 3.7 -Likely due to very poor cardiac output, therefore creating less liver perfusion -Takes Coumadin for aortic valve replacement -Holding Coumadin, daily INR, watch for acute bleeding Renal insufficiency ROBERT -Baseline serum creatinine has been ~1.1 -Known history of renal insufficiency -Elevated to 1.6, now 1.1, BUN 37 -Pre-renal due to poor cardiac output (CHF), cor pulmonale -Continue strict I/Os, indwelling lemos, IV Lasix, continue BB, routine labs Mitral stenosis History of aortic valve replacement -Patient states about 12 years ago -On exam, +systolic murmur with a click -Preliminary echo from today notes a severe MS, aortic valve has expected stenosis from a 12 year old mechanical valve -Await Palliative care consult, treat with beta blockers, gentle diuretics CLL History of breast cancer History of colon cancer -No current oncologist -Confirmed after reviewing PCP notes Tobacco dependence in remission -Admits to smoking from age 21, now with COPD (emphysema) -Uses nocturnal O2 -Dr. Morales office notes state the patient continues to smoke, and quit in 2014 -Encourage cessation COPD with emphysema Pulmonary fibrosis -Patient notes that she uses oxygen at night and sets it on 20 -Long standing tobacco dependence from age 21 -Recurrent right pleural effusion -Profound cor pulmonale found on echo report -Provide respiratory support, using home inhaler since we do not carry, Xopenex PRN, guaifenesin Insomnia -Takes Ambien at home, records from Dr. Flaherty notes 12.5 extended release -Prescribed 10mg while here -Monitor for effectiveness Anxiety -Becomes easily tearful -No anti-depressants at home -Combined with frustration, constant struggles with breathing -Thankful for a Palliative care consult on 04/23/2019~ 1430 -Consider offering Zoloft, or low dose lorazepam for her ongoing anxiety Osteoporosis -Takes Fosomax and Vitamin D3 at home, now on hold -Likely a consequence of her longstanding lung disease Hypothyroidism -No recent TSH, checking in the AM -Takes Sythroid 75 mcg at home, will continue here Stable/chronic diagnoses: Hyperlipidemia Vertigo Allergic rhinitis Menieres disease Nonparalytic stroke symptoms History of TIA
--- NOTE | 2019-04-23 15:52 | CONSULTATION NOTE ---
Palliative Care Consultation - Referral Referring Provider: Lidia WELLS Time of Visit: 8622-3077 Referral setting: Hospitalized patient Referral Reason: Goals of Care/Anxiety/COPD/CHF/Recurrent pleural effusion - Information Sources Records reviewed: RN notes reviewed, Previous records reviewed History/Review of Systems obtained from: Patient (had hoped to have and his sister join; not available) Exam limitations: No limitations - History of Present Illness Brief History of Present Illness: This is a 78-year-old woman who was admitted with acute exacerbation of her CHF on 04/21/2021 [facility]. Her worsening dyspnea, is related to her recurrent pleural effusion. She did have a thoracentesis on 04/01/2019, cith a little less than a liter, she reports it was negative for infection, malignancy, though it was bloody in appearance. She was somewhat surprised they were looking for cancer. She did get some relief with thoracentesis, but reports only for about a day or 2. Then she had progressive ongoing breathlessness, and developed worsening bilateral edema, and was sent in by her primary care provider.She has been being gently diuresed, medications adjusted, as well as echo. Goal at this time is to try and manage pleural effusion medically, given the acute reaccumlation. She did have an ECHO with concerning findings of "Echo notes a severe MS, aortic valve with expected stenosis from a 12 year old mechanical valve, severe LV impairment with a decreased cavity size, LV appears hyperdynamic, EF 75%, LV septal wall which is actually concaved in diastole consistent with RV volume overload, RVSP at rest of 96 mmHg, severe pulmonic stenosis" Patient does understand the seriousness of her illness, she is quite concerned regarding her heart, as well as superimposed on her COPD. She reports she is feeling better, but with any kind of cough it triggers increased breathlessness, and pain bilaterally through her ribs, as well as intermittent chest discomfort. She has been toying and discussing with her transition to assisted living, but is found this a difficult conversation as well as an overwhelming task to consider. She does feel quite vulnerable with her current hospitalization, recognizing she could "drop ", or this may reoccur again, her biggest concern and worry actually is not being around for her who has had a stroke. Palliative care to explore goals of care, patient's priority and concern regarding transitioning to another setting, as well as advanced care planning. Medical/Surgical History - Past Medical History Cardiovascular: reports: Congestive heart failure, Hypertension, High cholesterol, Coronary artery disease, Murmur, Valve disorder Respiratory: reports: COPD, Emphysema, Shortness of breath, Other (recurrent pleural effusion) Neuro: Headaches, Peripheral neuropathy, Tremors Endocrine/Autoimmune: reports: HyPOthyroidism GI: reports: GERD, Other (Colon Cancer) TRAIN OPERATOR: reports: Breast cancer : reports: Incontinence, Renal insuffiency, Nocturia, Frequency HEENT: reports: Chronic vision loss, Chronic sinusitis, Chronic hearing loss Psych: reports: Depression, Anxiety Musculoskeletal: reports: Osteoarthritis, Osteoporosis, Fatigue, Chronic back pain Derm: reports: None MRSA Hx?: No Other Past Medical History: Colon cancer, CLL, skin cancer - Past Surgical History General: reports: Appendectomy, Bowel surgery /TRAIN OPERATOR: reports: Oophrectomy Cardiovascular: reports: Valve replacement HEENT: reports: Cataracts Derm: reports: Skin cancer surgery - Substance History Use: Uses substance without health or social issues: NONE, Tobacco (quit smoking 7 years ago) Abuse: Recurrent use of substance despite neg consequences: NONE Social History - Living Situation Living arrangement: At home Living Situation: With spouse/s.o. Support System: Patient's , had a stroke about 6 years ago, they do have a caregiver Ashley, Who has been with them since that time. He originally was doing work, but has been involved intimately with his care, providing bathing 3 times a week, as well as daily exercise, they are having support through him about 3 hours a day. She also has housecleaning support every other week, but is finding that the rest of the time he does need lift assist, assistance with some chaz-care, and transfers. This is getting more difficult for her to provide. She is exhausted with cooking, cleaning up, and just managing the day today. She is very much interested in transitioning assisted living, they do have [facility], and complicating her current situation are going to have to vacate as a had a water leak in the near future. Not have children, she came from a large family is 1 of 8 children, her roots are [facility] though [facility]. Most of her siblings live in [place] and [place], she and her moved frequently. He was a discharge he and then transition to a marine machinist. 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 She lost her mother and father both to dementia complications the same year. Which was 2009. His sister does live across the street, but she is getting ready to move close to her children, they do have nieces and nephews, which they have assigned as backup D POA, but really do not have any near by family support. Family History - Family History Family History: Mother: , Alzheimer's Disease, CAD, Father: , Alzheimer's Disease Medications/Allergies - Medications Active Medication List: Active Medications Alprazolam (Xanax) 0.25 mg PO Q6HR PRN PRN Reason: Anxiety Aspirin ([place] Aspirin) 81 mg PO DAILY [facility] Last Admin: 04/23/19 08:14 Dose: 81 mg Furosemide (Lasix Inj 40 Mg Vial) 40 mg IVP BIDDIURETIC [facility] Last Admin: 04/23/19 08:14 Dose: 40 mg Guaifenesin (Mucinex) 600 mg PO BID [facility] Last Admin: 04/23/19 08:14 Dose: 600 mg Lactulose (Enulose) 10 gm PO DAILY [facility] Last Admin: 04/23/19 08:13 Dose: 10 gm Levalbuterol HCl (Xopenex) 1.25 mg INH Q4H PRN PRN Reason: Shortness of Air/Wheezing Last Admin: 04/23/19 09:11 Dose: 1.25 mg Levothyroxine Sodium (Synthroid) 75 mcg PO QDAC [facility] Last Admin: 04/23/19 06:25 Dose: 75 mcg Metoprolol Succinate (Toprol Xl) 25 mg PO DAILY [facility] Last Admin: 04/23/19 08:14 Dose: 25 mg Midodrine () 2.5 mg PO TIDWM [facility] Last Admin: 04/23/19 13:27 Dose: 2.5 mg Patient Own Med ( Tiotropium Br/Olodaterol Hcl [ Stiolto Respimat Inhal [place]] 1 Inh) 1 each PO DAILY [facility] Sodium Chloride (Normal Saline Flush 0.9%) 10 ml IVP PRN PRN PRN Reason: NEEDED PER PROVIDER ORDERS Last Admin: 04/23/19 08:14 Dose: 10 ml Sodium Chloride (Normal Saline Flush 0.9%) 10 ml IVP 0100,0900,1700 [facility] Last Admin: 04/23/19 08:14 Dose: 10 ml Spironolactone (Aldactone) 25 mg PO DAILY [facility] Last Admin: 04/23/19 08:14 Dose: 25 mg Zolpidem Tartrate (Ambien) 10 mg PO QPM [facility] Last Admin: 04/22/19 20:08 Dose: 10 mg Aspirin [Aspir 81] 81 mg PO DAILY 12/28/14 Calcium Carbonate [Calcium] 600 mg PO DAILY 12/28/14 Levothyroxine Sodium 100 mcg PO WE 12/28/14 Meclizine HCl 12.5 mg PO DAILY PRN 12/28/14 Warfarin Sodium 2.5 mg PO SUMOWEFRSA 12/28/14 Tiotropium Br/Olodaterol HCl [Stiolto Respimat Inhal [place]] 1 inh PO DAILY 04/22/19 Albuterol Sulf [Ventolin Hfa Inhaler] 1 - 2 puffs PO Q4HR PRN 04/23/19 Cholecalciferol (Vitamin D3) [Vitamin D3] 1,000 units PO DAILY 04/23/19 Folic Acid 0.8 mg PO DAILY 04/23/19 Levothyroxine [Synthroid] 75 mcg PO DAILY 04/23/19 Lisinopril [Zestril] 2.5 mg PO DAILY 04/23/19 Potassium Chloride 10 meq PO QPM 04/23/19 Potassium Chloride 20 meq PO DAILY 04/23/19 Torsemide 20 mg PO DAILY 04/23/19 Warfarin [Coumadin] 5 mg PO [email or web address]H 04/23/19 Zolpidem Tartrate [Ambien Cr] 12.5 mg PO QPM PRN 04/23/19 - Allergies Allergies/Adverse Reactions: Allergies Allergy/AdvReac Type Severity Reaction Status Date / Time codeine Allergy Unknown Verified 04/21/19 12:41 Review of Systems - Constitutional Constitutional: reports: Fatigue (worsening), Weakness, Poor appetite (prior to admit; improved today), Weight gain (fluid) - Eyes Eyes: reports: Vision loss, Corrective lenses - Ears, Nose & Throat Ears, Nose & Throat: reports: Hearing loss, Dry mouth - Cardiovascular Cardiovascular: reports: Chest pain (intermittent), Edema (worsening prior to admit; improved), Exertional dyspnea, Decr. exercise tolerance - Respiratory Respiratory: reports: Cough (with increased pain and breathlessness), SOB at rest (with any conversation), SOB with exertion - Gastrointestinal Gastrointestinal: reports: Bloating, Poor appetite, Early satiety - Genitourinary Genitourinary: reports: Incontinence, Other (currently with lemos) - Musculoskeletal Musculoskeletal: reports: Muscle weakness - Integumentary Integumentary: reports: Dryness - Neurological Neurological: reports: General weakness - Psychiatric Psychiatric: reports: Depression, Anxiety - All Other Systems All Other Systems: reports: Reviewed and negative Physical Exam - Vital Signs Vital Signs: Vital Signs x48h Temp Pulse Pulse Resp BP Pulse Ox 04/23/19 13:42 36.7 C 86 24 98 04/23/19 12:38 36.7 C 83 20 100/39 L 98 04/23/19 09:11 86 24 04/23/19 08:00 36.4 C L 77 18 105/53 L 96 - Physical Exam General Appearance: positive: Alert, Anxious Eyes Bilateral: positive: Normal inspection ENT: positive: Dry mucous membranes Neck: positive: Trachea midline Cardiovascular: positive: Irregularly irregular Respiratory: positive: Other (diminished RLL 1/3 up; breath sounds diminished) Abdomen: positive: Non-tender, Soft, Nml bowel sounds Skin: positive: Pallor, Dryness, Bruising Extremities: positive: Pedal edema (improved; still residual; up into thighs) Neurologic/Psychiatric: positive: Oriented x3, Mood/affect nml, Weakness, Flat affect Palliative Care - POLST Patient has POLST: No POLST Status: DNR Pain: No pain Feelings of wellbeing/Perceived Quality of Life: Fair, Worsening Sleep: Variable sleep pattern Constipation: No Performance Status: Has had some progressive decline, functionally able to ambulate only short distances without rest periods. This is mostly related to her fatigue and dyspnea, and most acutely related to her edema and recurrent pleural effusion. She has been able to manage her ADLs, but her most challenging task is actually helping with her has a stroke with lifting, personal care, and transfers. She does understand this is impacting her health, as well as she is most likely not able to do this on return home given her acute symptoms. - Palliative Care Discussion: Patient does worry about her dying before her , she does oversee their care, and unclear who would be managing him. They do have a trust and finances set up, but she is still is hopeful that she will outlive him. The barrier currently is just the steps it takes a transition from home, to an assisted living. She very much likes the idea, of having someone cook and meal prep and no shopping, and understand she would have to pay for another layer of support for lifting and his care. She has even toyed with continuing her relationship with Ashley as he has been with them 7 years, we did spend a significant time addressing barriers, ways to approach her , and also reinforcing the information is important to do this not in crisis but in preparation. They are going to need to vacate their house, unclear if the insurance would pay outside of a hotel, but did suggest possible respite stay at [facility] as she is interested in that facility while dealing with their recent water damage. We did discuss in the context of her end-of-life wishes, she is a do not attempt resuscitation, we reviewed this, and also how to translate this into a POLST and goal of POLST. Counseling provided regarding her wishes, most likely would fall into given our conversation DNA R and selective treatments. She has agreed to read through them, addressed questions as able, she would like one for both her and herself, he does have an a pending appointment with Dr. Osman Flaherty. Requested copy of D POA documents, to put in medical record. Patient has been with Dr. Osman Flaherty for over 30 years, she sees her linotype operator Carlee Sullivan, as well as her butcher Dr. Shepherd. She has had cancer and cancer surgeries, she is feeling more vulnerable this time around, and with some increased anxiety. She does understand the seriousness of her condition, we did discuss in the context of goals of palliative care to provide support for quality of life, recognizing her current situation provides an unknown for her. Results - Lab Results Lab results reviewed: Yes Fish Bones: 04/23/19 04:35 04/23/19 04:35 Lab and Imaging Results: Lab Results x24hrs 04/23/19 04/23/19 04/23/19 Range/Units 10:50 04:35 04:35 WBC (4.8-10.8) x10^3/uL RBC (4.20-5.40) 10^6/uL Hgb (12.0-16.0) g/dL Hct (37.0-47.0) % MCV (81.0-99.0) fL MCH (27.0-31.0) pg MCHC (32.0-36.0) g/dL RDW (12.0-15.0) % Plt Count (130-450) 10^3/uL MPV (7.9-10.8) fL Neut # (Auto) (1.5-6.6) 10^3/uL Lymph # (Auto) (1.5-3.5) 10^3/uL [place] # (Auto) (0.0-1.0) 10^3/uL Eos # (Auto) (0.0-0.7) 10^3/uL Baso # (Auto) (0.0-0.1) 10^3/uL Absolute Nucleated RBC x10^3/uL Nucleated RBC % /100WBC PT (9.9-12.6) secs INR (0.8-1.2) Sodium (135-145) mmol/L Potassium (3.5-5.0) mmol/L Chloride (101-111) mmol/L Carbon Dioxide (21-32) mmol/L Anion Gap (6-13) BUN (6-20) mg/dL Creatinine (0.4-1.0) mg/dL Estimated GFR (MDRD) (>89) Glucose (70-100) mg/dL Calcium (8.5-10.3) mg/dL Magnesium (1.7-2.8) mg/dL Total Bilirubin (0.2-1.0) mg/dL Direct Bilirubin 0.7 H (0.1-0.5) mg/dL AST (10-42) IU/L ALT (10-60) IU/L Alkaline Phosphatase (42-121) IU/L B-Natriuretic Peptide 1543 H (5-100) pg/mL Total Protein (6.7-8.2) g/dL Albumin (3.2-5.5) g/dL Globulin (2.1-4.2) g/dL Albumin/Globulin Ratio (1.0-2.2) TSH 6.50 H (0.34-5.60) uIU/mL 0204/23/19 04/23/19 Range/Units 04:35 04:35 04:35 WBC 6.3 (4.8-10.8) x10^3/uL RBC 4.59 (4.20-5.40) 10^6/uL Hgb 12.0 (12.0-16.0) g/dL Hct 38.2 (37.0-47.0) % MCV 83.2 (81.0-99.0) fL MCH 26.1 L (27.0-31.0) pg MCHC 31.4 L (32.0-36.0) g/dL RDW 18.7 H (12.0-15.0) % Plt Count 266 (130-450) 10^3/uL MPV 9.4 (7.9-10.8) fL Neut # (Auto) 4.1 (1.5-6.6) 10^3/uL Lymph # (Auto) 0.7 L (1.5-3.5) 10^3/uL [place] # (Auto) 1.1 H (0.0-1.0) 10^3/uL Eos # (Auto) 0.2 (0.0-0.7) 10^3/uL Baso # (Auto) 0.1 (0.0-0.1) 10^3/uL Absolute Nucleated RBC 0.00 x10^3/uL Nucleated RBC % 0.0 /100WBC PT 39.3 H (9.9-12.6) secs INR 3.7 H (0.8-1.2) Sodium 135 (135-145) mmol/L Potassium 3.9 (3.5-5.0) mmol/L Chloride 102 (101-111) mmol/L Carbon Dioxide 25 (21-32) mmol/L Anion Gap 8.0 (6-13) BUN 37 H (6-20) mg/dL Creatinine 1.1 H (0.4-1.0) mg/dL Estimated GFR (MDRD) 48 L (>89) Glucose 88 (70-100) mg/dL Calcium 8.9 (8.5-10.3) mg/dL Magnesium 2.2 (1.7-2.8) mg/dL Total Bilirubin 1.3 H (0.2-1.0) mg/dL Direct Bilirubin (0.1-0.5) mg/dL AST 31 (10-42) IU/L ALT 21 (10-60) IU/L Alkaline Phosphatase 82 (42-121) IU/L B-Natriuretic Peptide (5-100) pg/mL Total Protein 6.7 (6.7-8.2) g/dL Albumin 3.2 (3.2-5.5) g/dL Globulin 3.5 (2.1-4.2) g/dL Albumin/Globulin Ratio 0.9 L (1.0-2.2) TSH (0.34-5.60) uIU/mL Impression and Recommendations - Palliative Care Impression: This is a 78-year-old woman who presents with severe edema and respiratory distress related to her pleural effusion on the right, she has acute on chronic heart failure, and has had increasing distress related to the above, as well as fairly acute functional decline. Patient does present with moderate to high symptom burden, of breathlessness, anxiety, and fatigue. Palliative care meeting with patient to explore goals of care, advanced care planning, as well as developed rapport. Recommendations/Counseling Done: 1. Anxiety. This is multifactorial in origin, including her recent health issues, care needs of her , lack of social support, and recognizing needing transition plan to will select higher level of care and/or assisted living. Counseling provided to normalize her current grief and loss process, address concerns and vulnerabilities, and assist with problem solving regarding barriers and communication with her . Patient would benefit from long- term support from palliative care team, will initiate palliative care clinical medical transcriptionist referral if followed in outpatient setting. 2. Advanced care planning. Counseling provided regarding the continuum of care, goals of care, and advanced care planning documents. Introduced POLST, counseling spent regarding defining quality of life. Patient short-term goals, prior to initiate transition to assisted living situation, and/or increased assistance in home. There is also of the complexity of a acute issue, needing to relocate for repairs in their home. Will pursue outpatient palliative care consult, patient given information. We will follow-up with patient tomorrow for further conversation and completion of the POLST as well as address any other questions and concerns that have evolved from our conversation. Patient scores a 6 on the Vishal index, which looks at hospitalized adults age 70 and older and all cause 1 year mortality, risk calculator. This is for 1 year mortality her score is a 6, 4-6 translate into 34%. Risk calculators cannot predict the future for anyone individual, but can give an estimate of how many people with similar risk factors will live and but they cannot identify who will live in who will . Time Spent: 90 minutes with greater than 50% of this done in counseling regarding goals of care, advanced care planning, continue of care, transition planning, and anticipatory guidance
[2019-04-23] MEDS: TIOTROPIUM BR PO SCH (16:17)
[2019-04-23] MEDS: OLODATEROL HCL PO SCH (16:17)
[2019-04-23] MEDS: ZOLPIDEM 5 MG TABLET PO SCH (20:09)
[2019-04-23] MEDS: MAGNESIUM OXIDE 400 MG TABLET PO SCH (20:09)
--- NOTE | 2019-04-23 22:01 | XRAY Report ---
Reason: right pleural effusion Procedure Date: 04/23/2019 Accession Number: [id number] / [id number] Procedure: XR - Chest 1 View X-Ray CPT Code: 91156 Final Report FULL RESULT: EXAM: CHEST RADIOGRAPHY EXAM DATE: 04/23/2019 07:33 PM. CLINICAL HISTORY: Right pleural effusion. COMPARISON: CHEST 1 VIEW 04/21/2019 2:09 PM. TECHNIQUE: 1 view. FINDINGS: Sternotomy wires, surgical clips, and the valvular ring are reidentified. The large right pleural effusion and right lower lung consolidation is unchanged. Pulmonary edema persists. Right apical calcifications are reidentified. Left lower lobe atelectasis has developed. There is no pneumothorax. IMPRESSION: Unchanged large right pleural effusion with right lower lung consolidation. New left lower lobe atelectasis. Pulmonary edema. RADIA
[2019-04-24] MEDS: SODIUM CHLORIDE FLUSH 0.9% 10 ML SYRINGE IVP SCH ×2 (00:39→08:33)
[2019-04-24 05:01] LABS: BASOPHILS # (AUTO) 0.1 10^3/uL (0.0-0.1); BASOPHILS % (AUTO) 1.2 %; EOSINOPHILS # (AUTO) 0.2 10^3/uL (0.0-0.7); EOSINOPHILS % (AUTO) 3.4 %; HGB - HEMOGLOBIN 12.3 g/dL (12.0-16.0); LYMPHOCYTES # (AUTO) 0.6 10^3/uL (1.5-3.5); LYMPHOCYTES % (AUTO) 9.7 %; MEAN CORPUSCULAR HEMOGLOBIN 25.7 pg (27.0-31.0); MEAN CORPUSCULAR VOLUME 82.9 fL (81.0-99.0); MEAN PLATELET VOLUME 9.6 fL (7.9-10.8); MONOCYTES # (AUTO) 1.2 10^3/uL (0.0-1.0); MONOCYTES % (AUTO) 18.6 %; NEUTROPHILS # (AUTO) 4.3 10^3/uL (1.5-6.6); NEUTROPHILS % (AUTO) 66.6 %; PLT - PLATELET COUNT 250 10^3/uL (130-450); RED BLOOD COUNT 4.79 10^6/uL (4.20-5.40); RED CELL DISTRIBUTION WIDTH 18.6 % (12.0-15.0); WHITE BLOOD COUNT 6.5 x10^3/uL (4.8-10.8)
[2019-04-24 05:12] LABS: ALBUMIN 3.1 g/dL (3.2-5.5); ALBUMIN/GLOBULIN RATIO 0.9 (1.0-2.2); BILIRUBIN,TOTAL 1.3 mg/dL (0.2-1.0); CALCIUM 8.9 mg/dL (8.5-10.3); MAGNESIUM 1.9 mg/dL (1.7-2.8); TOTAL PROTEIN 6.7 g/dL (6.7-8.2)
[2019-04-24] MEDS: FUROSEMIDE 40 MG/4 ML VIAL IVP SCH (06:24)
[2019-04-24] MEDS: SODIUM CHLORIDE FLUSH 0.9% 10 ML SYRINGE IVP PRN ×2 (06:25→06:33)
[2019-04-24] MEDS ORDERED: LEVOTHYROXINE 100 MCG TABLET PO SCH (07:00)
[2019-04-24 07:57] VITALS: BP 118/53
[2019-04-24] MEDS: LACTULOSE 10 GM /15 ML UDC PO SCH (08:31)
[2019-04-24] MEDS: SPIRONOLACTONE 25 MG TABLET PO SCH (08:32)
[2019-04-24] MEDS: METOPROLOL SUCCINATE 25 MG TABLET PO SCH (08:32)
[2019-04-24] MEDS: guaiFENesin 600 MG TABLET PO SCH (08:32)
[2019-04-24] MEDS: MIDODRINE 2.5 MG TABLET PO SCH (08:32)
[2019-04-24] MEDS: ASPIRIN CHEW 81 MG TABLET PO SCH (08:32)
--- NOTE | 2019-04-24 09:44 | Discharge Plan ---
Discharge Plan Problem Reviewed?: Yes Disposition: Home, Self Care Condition: Good Prescriptions: ALPRAZolam [Alprazolam] 0.25 mg PO Q6H PRN #25 tablet PRN Reason: Anxiety guaiFENesin [Mucinex] 600 mg PO BID #60 tablet Lactulose 10 gm PO DAILY #30 bottle Metoprolol Succinate [Toprol Xl] 25 mg PO DAILY #30 tablet Midodrine 2.5 mg PO BIDWM #60 tablet Spironolactone [Aldactone] 25 mg PO DAILY #30 tablet Diet: Regular Activity Restrictions: Activity as Tolerated Instruction Topics: Midodrine tablets, Effusion Pleural, Shortness of Breath Control Stress, Anxiety Disorder, Hypertension Pulmonary Health Concerns: Recurrent right pleural effusion Decompensated Cor pulmonale/CHF Shortness of breath Symptom management of anxiety, insomnia, and fluid status Plan of Treatment: Continue new heart medications which were started while you were in the hospital Weigh yourself daily Rest when you are tired Continue to see Ruma Tian outpatient (Palliative care) Care Goals: Control symptoms with medications or rest Prevent ED visits or hospital stays Follow up with your primary care provider in the next few days (within a week) Your last INR today was 3.0 Resume the smaller Warfarin dose as usual Recheck INR on Saturday April 27, 2019 Assessment: You were admitted to the hospital for your recurrent right pleural effusion. Rather than doing a repeat thoracentesis, your treatment plan was to treat the underlying cause which we found to be Cor Pulmonale (Severe pulmonary hypert ension), from both your pulmonary fibrosis and your longstanding COPD. Over the years there has been a buildup of high pressures on the right side of your heart. This has been very profound, causing the right ventricle to push against the left ventricle, thereby making your left ventricle to have a very small cavity. Your heart also has stenosis in both the aortic and mitral valves, although your aortic valve is functioning about as expected for a 12 year old valve and is not of too much concern at this time. You were treated with IV diuretics and started on a medication to slow your heart. Compared to when you first came to the ED, your leg swelling has nearly resolved. An oxygen walking test was performed, and you passed, so no continuous oxygen is needed. Continue the oxygen at night as before. You had ongoing complains of anxiety, shortness of breath, feeling constipated, and no sleep while in the hospital, which have all been addressed either with medications, or by your Palliative care consult in which you met with Ruma Tian who will also keep in touch with you outpatient. No Smoking: If you smoke, Please STOP! Call for help. Follow-up with: Osman Flaherty MD [Primary Care Provider] -
--- NOTE | 2019-04-24 10:02 | DISCHARGE SUMMARY ---
"Discharge Summary Admit Date: 04/21/19 Discharge Date: 04/24/19 Discharging Provider: RUSSELL Marshall Primary Care Provider: Dr. Flaherty Code Status: Do Not Attempt Resuscitation Condition at Discharge: Good Discharge Disposition: 01 Home, Self Care - DIAGNOSES Admission Diagnoses: Pleural effusion on right Acute on chronic congestive heart failure Supratherapeutic INR ROBERT (acute kidney injury) Status post aortic valve replacement CLL (chronic lymphocytic leukemia) Tobacco dependence COPD with emphysema Insomnia Hypothyroidism Discharge Diagnoses with Status of Each Condition: Pleural effusion on right-Recurrent, present on admission, underlying cause was found to be the patient's decompensated CHF, no thoracentesis performed during this hospital stay, stable Acute on chronic combined systolic and diastolic ACC/AHA stage C congestive heart failure-Present on admission, started and continued medical guided therapy for HF, stable, symptoms improved Cor pulmonale-New dx for this admission, long standing lung dysfunction; pulmonary fibrosis, advanced COPD as the main culprits, medical guided therapy to continue at home Supratherapeutic INR-Resolved, patient instructed to resume her usual Coumadin dosing at home, stable Renal insufficiency-Chronic, stable ROBERT (acute kidney injury)-Resolved, present on admit Mitral stenosis-Noted to be severe on echocardiogram, stable Hx of aortic valve replacement-Chronic, remains on Coumadin, stable CLL (chronic lymphocytic leukemia)-Chronic, stable History of breast cancer-Chronic, stable History of colon cancer-Chronic, stable Tobacco dependence-Chronic, stable COPD with emphysema-Chronic, stable Pulmonary fibrosis-Chronic, remains on nocturnal oxygen, stable Insomnia-Chronic, no changes made to home ambien, stable Anxiety-Chronic, small dose of Xanax for home use, stable Osteoporosis-Chronic, stable Hypothyroidism-Chronic, elevated TSH at 6.09, adjusted dose to 100mcg daily, stable Hyperlipidemia-Chronic, stable Vertigo-Chronic, stable Allergic rhinitis-Chronic, stable Meniere disease-Chronic, stable Nonparalytic stroke syndrome-Chronic, stable History of TIA (transient ischemic attack)-Chronic, stable - HPI History of Present Illness: Enma Helton is pleasant 78-year-old female with a past medical history of hypertension, aortic valve replacement, CHF, CLL, status post chemotherapy, breast cancer, skin cancer, and colon cancer, status post bowel surgery, hypothyroidism, urinary incontinence, nocturnal oxygen use, COPD, and insomnia. The patient notes her regular coremaker experimental drained her right lung on (04/01/2019), this was a planned procedure. She notes that since about 2 weeks ag o, she has had progressive shortness of breath. She notes that yesterday she just became frustrated, with dizzy spells, chills, and her weight has increased (about 4 lbs in the past few days) with BLE edema, so needed to come to the ED. She states that she cannot even take a few steps without becoming severely short of breath and her cough has been non-productive. A chest x-ray shows a large right pleural fluid, which is causing her profound shortness of breath, which was improved since getting IV lasix in the ED. She will be continued on aggressive diuresis and potentially thoracentesis therapeutically. Labs show an INR of 4.9, so her Coumadin will be held while we start diuresis. If no i mprovement, the patient will need a right therapeutic thoracentesis. - CONSULTS | PROCEDURES Consultations: RUSSELL Alanis- Palliative care - HOSPITAL COURSE Hospital Course: The patient was admitted to the hospital for her recurrent right pleural effusion. Rather than doing a repeat thoracentesis, she was treated for the underlying cause which we found to be Cor Pulmonale (Severe pulmonary hyperten joel), caused by both pulmonary fibrosis and longstanding COPD. This has been very profound, causing the right ventricle to push against the left ventricle, thereby making the left ventricle to have a very small cavity (Concave septum). Stenosis in both the aortic and mitral valves were noted, and was not of too much concern for this hospital stay. The patient was treated with IV diuretics and started on metoprolol succinate. Compared to when she first presented to the ED, her leg swelling has nearly resolved. An oxygen walking test was performed, and she does not require continuous oxygen. Continue the oxygen at night as before. The patient had ongoing complains of anxiety, shortness of breath, feeling constipated, and no sleep while in the hospital, which have all been addressed either with medications, or by a Palliative care consult in which the patient met with Ruma Tian who will also keep in touch outpatient. The patient was medically stable and discharge instructions were explained in the presence of her friend, Valorie Shearert who was also present to take the patient back home today with her . - ALLERGIES Allergies/Adverse Reactions: Allergies Allergy/AdvReac Type Severity Reaction Status Date / Time codeine Allergy Unknown Verified 04/21/19 12:41 - MEDICATIONS Home Medications: Ambulatory Orders Medication Instructions Recorded Confirmed Aspirin [Aspir 81] 81 mg PO DAILY 12/28/14 04/23/19 Calcium Carbonate [Calcium] 600 mg PO DAILY 12/28/14 04/23/19 Meclizine HCl 12.5 mg PO DAILY PRN 12/28/14 04/23/19 Warfarin Sodium 2.5 mg PO SUMOWEFRSA 12/28/14 04/23/19 Tiotropium Br/Olodaterol HCl 1 inh PO DAILY 04/22/19 04/23/19 [Stiolto Respimat Inhal Pana] Albuterol Sulf [Ventolin Hfa 1 - 2 puffs PO Q4HR PRN 04/23/19 04/23/19 Inhaler] Cholecalciferol (Vitamin D3) 1,000 units PO DAILY 04/23/19 04/23/19 [Vitamin D3] Folic Acid 0.8 mg PO DAILY 04/23/19 04/23/19 Lisinopril [Zestril] 2.5 mg PO DAILY 04/23/19 04/23/19 Potassium Chloride 20 meq PO DAILY 04/23/19 04/23/19 Torsemide 20 mg PO DAILY 04/23/19 04/23/19 Warfarin [Coumadin] 5 mg PO TUTH 04/23/19 04/23/19 Zolpidem Tartrate [Ambien Cr] 12.5 mg PO QPM PRN 04/23/19 04/23/19 ALPRAZolam [Alprazolam] 0.25 mg PO Q6H PRN #25 tablet 04/24/19 Lactulose 10 gm PO DAILY #30 bottle 04/24/19 Levothyroxine Sodium 100 mcg PO DAILY #30 04/24/19 04/23/19 Metoprolol Succinate [Toprol Xl] 25 mg PO DAILY #30 tablet 04/24/19 Midodrine 2.5 mg PO BIDWM #60 tablet 04/24/19 Spironolactone [Aldactone] 25 mg PO DAILY #30 tablet 04/24/19 guaiFENesin [Mucinex] 600 mg PO BID #60 tablet 04/24/19 - PHYSICAL EXAM AT DISCHARGE General Appearance: positive: Alert, Mild distress, Anxious Eyes Bilateral: positive: PERRL, No lid inflammation, Other (mild bilateral scleral erythema) Neck: positive: No JVD, Trachea midline Respiratory: positive: Chest non-tender, No respiratory distress, Rhonchi (right lung lobe, left lobe is clear) Cardiovascular: positive: Regular rate & rhythm, No gallop, Systolic murmur, Diastolic murmur Peripheral Pulses: positive: 1+ Abdomen: positive: Non-tender, Nml bowel sounds, Other (rounded, soft) Back: positive: Nml inspection Skin: positive: No rash, Warm, Dry Extremities: positive: Non-tender, Full ROM, No pedal edema, Joint swelling Neurologic/Psychiatric: positive: Oriented x3, CN's nml (2-12), Motor nml, Sensation nml, Weakness, Sensory loss, Depressed mood/affect (flat) Reflexes: Bicep (R): 3+, Bicep (L): 3+ - LABS Result Diagrams: 04/24/19 04:40 04/24/19 04:40 - DIAGNOSTIC IMAGING Diagnostic Imaging Results: Final report reviewed Diagnostic Imaging Results Comments: EXAM: CHEST RADIOGRAPHY 04/21/2019 02:26 PM IMPRESSION: Moderate to large right pleural effusion. EXAM: CHEST RADIOGRAPHY 04/23/2019 07:33 PM IMPRESSION: Unchanged large right pleural effusion with right lower lung consolidation. New left lower lobe atelectasis. Pulmonary edema. - FOLLOW UP Follow Up: Follow up with your primary care provider in the next few days (within a week) Your last INR today was 3.0 Resume the smaller Warfarin dose as usual Recheck INR on Saturday April 27, 2019 - TIME SPENT Time Spent in Discharge (Minutes): 55"
[2019-04-24] MEDS: OLODATEROL HCL PO SCH (10:06)
[2019-04-24] MEDS: TIOTROPIUM BR PO SCH (10:06)
[2019-04-24] MEDS: MAGNESIUM OXIDE 400 MG TABLET PO SCH (10:47)
[2019-04-24] MEDS ORDERED: METOPROLOL SUCCINATE 25 MG TABLET PO SCH (17:00)
== END 2019-04-24 12:44 | disposition home or self-care (01) | DRG 291 ==
LOC: ED 12:28 → MS2 17:52 → OBSVTOIN 04-23 10:19
PROVIDERS: ADMIT Nurse Practitioner; ATTEND Nurse Practitioner
DX: I11.0 Hypertensive heart disease with heart failure (principal); I13.0 Hypertensive heart and chronic kidney disease with heart failure and stage 1 through stage 4 chronic kidney disease, or unspecified chronic kidney disease; I50.43 Acute on chronic combined systolic (congestive) and diastolic (congestive) heart failure; N17.9 Acute kidney failure, unspecified; C91.11 Chronic lymphocytic leukemia of B-cell type in remission; T82.857A Stenosis of other cardiac prosthetic devices, implants and grafts, initial encounter; Y83.8 Other surgical procedures as the cause of abnormal reaction of the patient, or of later complication, without mention of misadventure at the time of the procedure; Y92.009 Unspecified place in unspecified non-institutional (private) residence as the place of occurrence of the external cause; I27.23 Pulmonary hypertension due to lung diseases and hypoxia; I05.0 Rheumatic mitral stenosis; R79.1 Abnormal coagulation profile; I37.0 Nonrheumatic pulmonary valve stenosis; I27.81 Cor pulmonale (chronic); I95.9 Hypotension, unspecified; J43.9 Emphysema, unspecified; F41.9 Anxiety disorder, unspecified; M81.0 Age-related osteoporosis without current pathological fracture; E03.9 Hypothyroidism, unspecified; G47.00 Insomnia, unspecified; E78.5 Hyperlipidemia, unspecified; F03.90 Unspecified dementia, unspecified severity, without behavioral disturbance, psychotic disturbance, mood disturbance, and anxiety; J84.10 Pulmonary fibrosis, unspecified; F17.201 Nicotine dependence, unspecified, in remission; I25.10 Atherosclerotic heart disease of native coronary artery without angina pectoris; Z95.2 Presence of prosthetic heart valve; F32.9 Major depressive disorder, single episode, unspecified; N18.9 Chronic kidney disease, unspecified; F51.04 Psychophysiologic insomnia; K59.00 Constipation, unspecified; Z66 Do not resuscitate; Z51.5 Encounter for palliative care; Z79.82 Long term (current) use of aspirin; Z99.81 Dependence on supplemental oxygen; Z85.828 Personal history of other malignant neoplasm of skin; Z85.3 Personal history of malignant neoplasm of breast; Z85.038 Personal history of other malignant neoplasm of large intestine; Z79.01 Long term (current) use of anticoagulants; Z87.891 Personal history of nicotine dependence; Z79.899 Other long term (current) drug therapy; Z86.73 Personal history of transient ischemic attack (TIA), and cerebral infarction without residual deficits; Z63.6 Dependent relative needing care at home; Z92.21 Personal history of antineoplastic chemotherapy
CPT/HCPCS: 36415; 71045; 80053; 81003; 82248; 83605; 83690; 83735; 83880; 84443; 84484; 85025; 85610; 87040; 93005; 93306; 94640; 94761; 96374; 96376; 99223; 99284; 99285; A9270; G0378; 81001; 87086

== ENCOUNTER 2019-05-04 08:00 | Outpatient (CLI) | payer MEDICARE ==
[2019-05-04 12:21] LABS: CALCIUM 9.5 mg/dL (8.5-10.3)
== END 2019-05-04 23:59 | disposition home or self-care (01) ==
LOC: LAB.N 08:00
PROVIDERS: ATTEND Internal Medicine Cardiovascular Disease
DX: Z95.2 Presence of prosthetic heart valve (principal); N28.9 Disorder of kidney and ureter, unspecified; I50.9 Heart failure, unspecified; I11.0 Hypertensive heart disease with heart failure
CPT/HCPCS: 36415; 80048; 85610

== ENCOUNTER 2019-05-06 15:52 | Outpatient (CLI) | payer MEDICARE | END 2019-05-06 15:53 | disposition short-term general hospital (02) | LOC: EMS 15:52 | PROVIDERS: ATTEND Surgery | DX: I50.9 Heart failure, unspecified (principal); N17.9 Acute kidney failure, unspecified | CPT/HCPCS: A0425; A0428 ==